=== PATIENT | male | born 1945 | race Caucasian/White ===

== ENCOUNTER 2017-06-18 15:31 | Outpatient (CLI) | payer MEDICARE | END 2017-06-18 15:32 | disposition home or self-care (01) | LOC: BICMRI 15:31 | PROVIDERS: ATTEND Neurological Surgery | DX: M54.2 Cervicalgia (principal); M47.892 Other spondylosis, cervical region; R60.0 Localized edema | CPT/HCPCS: 72156 ==

== ENCOUNTER 2017-12-28 09:54 | Inpatient (IN) | payer MEDICARE ==
[~2017-12-28 09:54] MED LIST: ISOVUE-370 76%-LOCM 1 ML ONE; Lidocaine 1% PF 5 ML VIAL ONE; Sodium Bicarbonate 2.5 MEQ/5 ML VIAL ONE
[2017-12-28 10:55] LABS: INR-International Normal Ratio 0.9; PTT 28.8 SEC (22.9-36.1)
[2017-12-28 11:02] LABS: Hemoglobin 15.6 g/dL (14.0-18.0); Mean Corpuscular HGB CONC 31.4 g/dL (32.0-36.0); Mean Corpuscular Hemoglobin 31.7 pg (27.0-31.0); Mean Platelet Volume 6.4 fL (7.4-10.4); Platelet Count 374 thou/uL (130-400); RBC Distribution Width 12.2 % (11.5-14.5); Red Blood Cell (RBC) Count 4.92 mill/uL (4.70-6.10); White Blood Cell (WBC) Count 17.1 thou/uL (4.8-10.8)
[2017-12-28 11:08] LABS: ALT (SGPT) 64 U/L (8-55); AST (SGOT) 26 U/L (5-34); Albumin 3.9 g/dL (3.4-4.8); Alkaline Phosphatase 69 U/L (40-150); Anion Gap 12 mmol/L (10-20); BUN (Urea Nitrogen) 15 mg/dL (8.4-25.7); Bilirubin, Total 1.3 mg/dL (0.2-1.2); Calc. Creatinine Clearance 0 mL/min (70-130); Calcium 9.6 mg/dL (7.8-10.44); Carbon Dioxide 31 mmol/L (23-31); Chloride 94 mmol/L (98-107); Estimated GFR-MDRD Greater than 90; Globulin 2.8 g/dL (2.4-3.5); Glucose 114 mg/dL (83-110); Potassium 3.6 mmol/L (3.5-5.1); Protein, Total 6.7 g/dL (5.8-8.1); Sodium 133 mmol/L (136-145)
[2017-12-28 11:31] LABS: Band 25 % (5-11); Lymphocytes 11 % (21-51); MDiff Complete? YES; Monocytes 4 % (0-10); Neutrophil 57 % (42-75); PLT Morphology Comment Appears Adequate; Reactive Lymphocytes 3 % (0-10); Vacuoles SLIGHT
--- NOTE | 2017-12-28 11:54 | RAD ---
ONE VIEW CHEST: History: Dyspnea. Recent diagnosis of lung cancer. FINDINGS: Atherosclerosis of the aorta. Normal cardiac silhouette. The pulmonary vessels and hilum are normal. Costophrenic angles are clear. Lungs are hyperinflated. Interstitial opacities of the lung bases are noted. There appears to be a nodule in the left upper lobe, measuring 1.3 cm. There is bilateral apical pleural thickening. No pneumothorax. IMPRESSION: 1. Hyperinflation. 2. Chronic change of the lung parenchyma. 3. Left upper lobe nodule. POS: [facility]
[2017-12-28] MEDS ORDERED: Piperacillin/Tazobactam 3.375 GM VIAL ONE (12:01)
--- NOTE | 2017-12-28 12:10 | PDOC.FPRHP ---
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 He and his report he has been havin increased dyspea in the last 2 weeks. He reports a productive cough with thick yellow sputum. Pt. reports that in the last 6 weeks, he as been on 3 different abx regiments. One was levoquin and he had a negative reaction to it. is unsure of the other two. Pt was also started a steroid step down on 12/16-12/31. He is currently on 1/2 pill, unknown dose. Pt. has no history of COPD or history of dyspnea. Pt. has been having dysphagia x 1 month. He is having trouble swallowing water. He reports it gets stuck up in his throat. Pt. had fall on 05/17 Pt. was diagnosed with Throat and tongue cancer in 2002. He received Radiation and surgery. Radiation therapy caused iatrogenic hypothyroidism and cataracts. Pt. had scope by Dr. Plunkett on 12/15 and he was clear of any cancer. Pt. had PET scan and was diagnosed with lung cancer 2 weeks ago. 12/25 Pt. had axilarly lymph node biopsy. Pending results. Dr. Chatman is his overnight houseperson. - Allergies/Adverse Reactions Allergies Allergy/AdvReac Type Severity Reaction Status Date / Time No Known Allergies Allergy Unverified 12/28/17 14:40 - Home Medications Medication Instructions Recorded Confirmed Type Amlodipine [Norvasc] 10 mg PO DAILY 12/28/17 12/28/17 History Levothyroxine Sodium [Synthroid] 137 mcg PO DAILY 12/28/17 12/28/17 History Losartan/Hydrochlorothiazide 1 tablet PO DAILY 12/28/17 12/28/17 History [Losartan-Hctz 100-12.5 mg Tab] - History PMHx: Hypothyroidism, HLD, metastatic lung cancer, throat/tongue cancer in remission, HTN PSHx: Throat/tongue cancer, FHx: none Social: Denies D/A/T - Review of Systems General: reports: weight/appetite/sleep changes (Decreased oral intake). denies : fever/chills Eyes: denies: eye pain, vision changes ENT: denies: nasal congestion, rhinorrhea Respiratory: reports: cough (yellow sputum), shortness of breath, exercise intolerance. denies: congestion Cardiovascular: reports: other (rib pain from coughing). denies: chest pain, palpitation, edema Gastrointestinal: denies: nausea, vomiting, diarrhea, constipation, abdominal pain Genitourinary: denies: incontinence, dysuria Skin: denies: rashes, lesions Musculoskeletal: denies: pain, tenderness Neurological: denies: numbness, syncope - Vital signs BP: 145/95 HR: 103 RR: 24 Tmax: 97.2 Pox: 93% on 4L Wt: 77.11 - Physical Exam Constitutional: awake, alert and oriented -Constitutional: Appears in mild distress 2/2 respiratory distress. HEENT: normocephalic and atraumatic, PERRLA, EOMI, conjunctiva clear Neck: supple, FROM Chest: no-tender to palpation Heart: RRR, normal S1/S2, no murmurs/rubs/gallops -Lungs: Pt. has diffuse coarse breath sounds. Pt. also has radiation from upper airway Abdomen: soft, non-tender, bowel sounds present Musculoskeletal: ROM grossly normal Neurological: CN II-XII intact -Skin: Cap refill ~4 seconds Psychiatric: normal mood and affect, good judgment and insight FMR H&P: Results - Labs Result Diagrams: 12/29/17 04:23 12/29/17 04:23 Lab results: WBC 17.1 thou/uL (4.8-10.8) H 12/28/17 10:32 Hgb 15.6 g/dL (14.0-18.0) 12/28/17 10:32 Hct 49.8 % (42.0-52.0) 12/28/17 10:32 MCV 101.0 fL (78.0-98.0) H 12/28/17 10:32 Plt Count 374 thou/uL (130-400) 12/28/17 10:32 Band Neuts % (Manual) 25 % (5-11) H 12/28/17 10:32 Sodium 133 mmol/L (136-145) L 12/28/17 10:32 Potassium 3.6 mmol/L (3.5-5.1) 12/28/17 10:32 Chloride 94 mmol/L (98-107) L 12/28/17 10:32 Carbon Dioxide 31 mmol/L (23-31) 12/28/17 10:32 BUN 15 mg/dL (8.4-25.7) 12/28/17 10:32 Creatinine 0.75 mg/dL (0.6-1.3) 12/28/17 10:32 Glucose 114 mg/dL (83-110) H 12/28/17 10:32 Lactic Acid 1.5 mmol/L (0.5-2.2) 12/28/17 10:32 Calcium 9.6 mg/dL (7.8-10.44) 12/28/17 10:32 Total Bilirubin 1.3 mg/dL (0.2-1.2) H 12/28/17 10:32 AST 26 U/L (5-34) 12/28/17 10:32 ALT 64 U/L (8-55) H 12/28/17 10:32 Alkaline Phosphatase 69 U/L (40-150) 12/28/17 10:32 Serum Total Protein 6.7 g/dL (5.8-8.1) 12/28/17 10:32 Albumin 3.9 g/dL (3.4-4.8) 12/28/17 10:32 - Radiology Interpretation Chest x-ray Status: image reviewed by me, report reviewed by me (Hyperinflation, chronic change of the lung parenchyma, left upper lobe nodule) FMR H&P: A/P - Problem List (1) Dyspnea Current Visit: Yes Status: Acute Code(s): R06.00 - DYSPNEA, UNSPECIFIED (2) Lung cancer Current Visit: Yes Status: Acute Code(s): C34.90 - MALIGNANT NEOPLASM OF UNSP PART OF UNSP BRONCHUS OR LUNG (3) HTN (hypertension) Current Visit: Yes Status: Acute Code(s): I10 - ESSENTIAL (PRIMARY) HYPERTENSION (4) HLD (hyperlipidemia) Current Visit: Yes Status: Acute Code(s): E78.5 - HYPERLIPIDEMIA, UNSPECIFIED (5) Hypothyroidism Current Visit: Yes Status: Acute Code(s): E03.9 - HYPOTHYROIDISM, UNSPECIFIED (6) History of throat cancer Current Visit: Yes Status: Acute Code(s): Z85.819 - PRSNL HX OF MALIG NEOPLM OF UNSP SITE LIP,ORAL CAV,& PHARYNX (7) Tongue cancer Current Visit: Yes Status: Acute (8) History of tobacco abuse Current Visit: Yes Status: Acute Code(s): Z87.891 - PERSONAL HISTORY OF NICOTINE DEPENDENCE - Plan This is a 72 yo male PMH of 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 COPD exacerbation -CXR shows no signs of PNA, procalcitonin 31.79. Pt. was started on vanc and zosyn (12/28) in the ED and will be continued. He is also receiving PRN duonebs and PRN albuterol nebs. Pt has been started on 10mg dexamethasone (12/28). D- dimer was negative. CBC was 17.1 although patient has been on PO steroids for dyspnea since 12/16. Lung cancer -Diagnoses with PET scan 2 weeks ago. Pt. had a lymph node biopsy on 12/25. Dr. Chatman is his overnight houseperson. Hypothyroidism -2/2 radiation. Will continue home meds once reconciled. HTN -Continue pt's home amlodipine and losartan/HCTZ HLD -Start pt. on statin Hx of throat/tongue cancer -Pt. has been on pureed diet since surgery in 2002. Pt. had recent, 12/15, scope performed by Dr. Neo Plunkett showing no signs of cancer. Despite this he as had increased dysphagia to water only. Speech has been consulted. Pt. is on clear liquid diet. Hx of fall -No current risk of fall. Was 2/2 poor judgment Hx of tobacco abuse -30 pack year history, quit 10 years ago Code: full Prophylaxis: Pepcid, lovenox Family: at bedside, plan discussed with her. Disposition: Admit to oncology, [place] in 3-4 days FMR H&P: Upper Level - Pertinent history HPI: 72 yo M with a PMHx HTN and head and neck cancer who presents with worsening shortness of breath, dysphagia and chest congestion for the last 3 weeks. He reports cough with increased sputum production and that he has been on multiple treatment regimens of abx and steroids OP without any improvement. He reports that his BP has also been increasingly difficult to control over the last few weeks as well. He has had poor PO intake and difficulty swallowing his pureed diet and now some difficulty with water. His PCP is in [place]. - Pertinent findings Exam: VS as above - mildly hypertensive, tachycardic and tachypenic Gen: alert and oriented x3 HEENT: EOMI, conjunctiva non-injected, oropharynx without posterior erythema or exudates, tongue resected CV: tachycardic, distant heart sounds hard to auscultate over breath sounds RESP: High-pitched diffuse coarse worse in upper lobes with good air entry BL Abd: soft, nontender, nondistended Ext: BLE without edema, pedal pulses 1+, radial pulses 1+ Neuro: No facial droop, equal movements in all extremities, speech slightly difficult to understand Skin: bruising under L axilla at site of LN biopsy CXR: Increased lung ulloa, L lung nodule, chronic changes Labs: WBC 17.1, Hgb 15.6, hct 49.8, Plt 374, MCV 101, Coags WNL, D dimber 0.29 , Na 133, K 3.6, CO2 94, Cr 075, Glu 114, AST 26, ALT 64, Alk phos 69, BNP 29.8 , Procal 31.79 A/P: 72 yo M with PMHx HTN and head and neck cancer with recent worsening SOB and dysphagia here with SIRS 2/2 suspected PNA 1. SIRS: s/p 1L NS in ED. Will continue fluids. Vanc and Zosyn. BCx not drawn until after abs started. Lactic acid negative. Procal elevated at 31.79. 2. SOB: No clear consolidation on CXR. CTA pending. Satting 93% on 4L NC. Reports SOB was 5/10 on admission and now 2.5 in difficulty. Will start steroids , continue abx and schedule duonebs. 3. Dysphagia: Acutely worsening over the last couple of weeks. HOUSEKEEPER HOME consult 4. HTN: Slightly elevated. Start home meds. Amlodipine and Losartan/hctz. Consider augmentation. 5. Recent LN biopsy with likely metastatic disease: Will await path. No oncologist as of yet. Will consult if indicated inpatient, otherwise will need close f/u outpatient. 6. Hypothyroid: Continue home Synthroid 7. H/o head and neck cancer 8. H/o tobacco abuse: Quit 10 years ago PPX: Lovenox CODE: FULL - Plan Date/Time: 12/28/17 1202 I, Denae Doss MD, PGY-3, have evaluated this patient and agree with findings/ plan as outlined by epidemiology intern resident. Pertinent changes/additions are listed here. Attending Addendum - Attending Addendum Date/Time: 12/28/17 1352 I personally evaluated the patient and discussed the management with Dr. Hernandez and Dr. Doss I agree with the History, Examination, Assessment and Plan documented above with any addition or exceptions noted below. 72 yo male with past history of head and neck cancer presents to ER for evaluation for SOB. Patient reports recent dx of primary lung cancer with possible mets to adrenals. Reports chronic worsening cough with increased sputum production over the past month. Has been treated with 3 rounds of antibiotics and steroid taper. Today not able to ambulate easily at home due to MARTINEZ which is far from baseline. s/p lymph node biopsy on Thursday. No fever or chills. No known sick contacts. No other symptoms. VS reviewed. Images reviewed. Labs reviewed. Ill appearing on exam. Tachycardic on exam. No murmurs. Course breath sounds throughout felt to be complicated by radiation of upper airway noise. SIRS concern for sepsis: Procal 31. Cultures obtained after antibiotics given in ER. Emperic antibiotics for now. Continue IVFs. Monitor closely. (HR, RR, WBCs, procal) Hypoxic respiratory distress: On supplemental O2. O2 sat maintained on NC. Patient reports feeling much better. CXR reviewed. CTA abd ddimer negative for PE. Also patient has 2 medical records in system with previous CTAs noted just recently. Not known during time of CTA order. Working on merging charts. Head/Neck cancer: s/p treatment/surgery 2002. Now with dysphagia. Speech eval for swallow. Metastatic lung cancer: Awaiting complete diagnosis and workup. Chatman to be consulted. COPD: Schedule breathing treatments and steroids. Adjust meds as needed. Bonita
[2017-12-28] MEDS ORDERED: Acetaminophen 325 MG TAB PO PRN (12:42)
[2017-12-28] MEDS ORDERED: Ondansetron ODT 4 MG TAB PO PRN (12:42)
[2017-12-28 13:02] LABS: D-Dimer Test 0.29 *mcg/mL (0.27-0.43)
[2017-12-28] MEDS ORDERED: Albuterol Sulfate 1.25 MG/3 ML NEB NEB PRN (14:02)
--- NOTE | 2017-12-28 15:44 | CT ---
CTA OF THORAX UTILIZING IV CONTRAST AND 3D REFORMATTED IMAGING: Date: 12/28/17 INDICATION: Shortness of breath with a history of cancer. Patient has a history of lung cancer diagnosed 2 weeks ago with 30 lb. weight loss, and increasing weakness and falls. TECHNIQUE: Multiple CTA images were obtained of the thorax utilizing PE protocol. 3D reformatted images were con structed from the raw data. Motion artifact slightly limits image detail. FINDINGS: There is air space consolidation within both lower lobes, with debris seen within the bronchi of both lower lobes suspicious for aspiration. There are patchy areas of ground-glass and reticulonodular op acity within the lateral segment of the right middle lobe suspicious for aspiration. There is a peripheral nodular opacity within the right upper lobe measuring 8.0 mm on image 51 of ser ies 3. There is a 2.5 cm pulmonary nodule within the apical posterior segment of the left upper lobe on image 33 of series 3. There is pleural parenchymal scarring and scattered emphysema involving both lungs. There is a small, 5.0 mm, pulmonary nodule of right upper lobe apical segment on image 22 of series 3. Smaller, sub 4.0 mm, pulmonary nodules within the anterior segment of the right upper lobe, image 44 of series 3. There is an enlarged lymphnode within the left AP window measuring 4.5 cm, image 45, series 2. There is a left suprahilar nodular prominence on image 49 of series 2 measuring 1.9 cm, which may reflect a suprahilar lymph node versus suprahilar mass. There are enlarged lymph nodes within the left axillary region, the largest measuring 2.4 cm on image 38 of series 2. There is ectasia of the ascending aorta up to 3.9 cm. There is aneurysmal dilatation of the aortic ar ch measuring 3.1 cm. The descending thoracic aorta also measures 3.2 cm. There are scattered coronary artery and thoracic aortic calcifications. Motion artifact slightly limits image detail. No definite central pulmonary embolus is evident. The s egmental pulmonary arteries are not well seen. There is a mass within the left adrenal gland measurin g 3.7 cm. No definite destructive osteolytic or osteoblastic lesion is identified. IMPRESSION: 1. No definite central pulmonary embolus demonstrated within limitations of exam. Lobar and segmenta l pulmonary branches are not well seen due to motion artifact. 2. Findings suspicious for aspiration pneumonitis of both lower lobes and right middle lobe. 3. Scattered pulmonary nodules within both lungs suspicious for metastatic disease. 4. Nodular opacity within the left suprahilar region may reflect an enlarged lymph node versus supra hilar mass. 5. Large lymph node within the AP window of the mediastinum suspicious for malignant lymphadenopathy . 6. Enlarged lymph nodes left axillary region suspicious for metastatic disease. 7. Left adrenal gland mass suspicious for metastatic disease. POS: [facility]
[2017-12-28] MEDS ORDERED: Sodium Chloride 0.9% 1,000 ML IV SCH (16:00)
[2017-12-28 16:51] LABS: Bilirubin Negative (Negative); Blood, Urine Negative (Negative); Clarity CLEAR (Clear); Glucose, Urine (Dipstick) Negative (Negative); Leukocyte Negative (Negative); Nitrite Negative (Negative); Protein, Urine (Dipstick) Trace mg/dL (Neg-Trace)
[2017-12-28] MEDS: Piperacillin/Tazobactam 3.375 GM in Sodium Chloride 0.9% 100 ML IVPB SCH (18:15)
[2017-12-28] MEDS: Mometasone/Formoterol 120 PUFF INHALER INH SCH (20:08)
[2017-12-28] MEDS: guaiFENesin ER 600 MG TAB PO SCH (20:08)
[2017-12-28] MEDS: Famotidine/PF 20 mg/2ml Vial SLOW IVP SCH (20:09)
[2017-12-28] MEDS ORDERED: Labetalol HCl 100 MG/20 ML VIAL SLOW IVP PRN (20:23)
[2017-12-28] MEDS: Labetalol HCl 100 MG/20 ML VIAL SLOW IVP PRN (21:05)
[2017-12-28] MEDS ORDERED: diphenhydrAMINE 50 MG/ML VIAL IVP SCH (23:00)
[2017-12-28] MEDS: Vancomycin HCl 1.25 GM in Sodium Chloride 0.9% 250 ML 300 ML IVPB SCH (23:04)
--- NOTE | 2017-12-29 00:02 | CON ---
A 72-year-old gentleman who is well known to me. He was seen in the office on 12/16/[address] of his chest shows very extensive multiple lung nodules, the largest one being pleural based left upper lung 2.5 cm. Additionally, he had adrenal mass in the left side 5 x 3 cm and aorta pulmonary mass with some minimal distal tracheal extrinsic compression. He lives in [facility] in 2002 in [place]. He was diagnosed to have lung cancer and underwent radical surgery with head and neck cancer surgery with reconstruction surgery, skin taken from the left forearm. He did well. He had a PET scan done, some 5 years ago, which was negative. At the time when I saw him, he appeared to be cachectic, malnourished. He has lost considerable weight. He is going to see Dr. Plunkett whom he has seen before in the past. I ordered another PET scan on him, which then showed rather extensive metastatic disease along with extensive adenopathy and a large left axillary lymph node. This was biopsied on Thursday. I spoke to the pathologist today, what appears to be poorly differentiated carcinoma, still doing some stains. Patient is a nonsmoker since 2002. Prior to that smoked 1.5 packs for 30 years with a previous history of TB or pneumonia. Presently can barely walk even across the morrow following which he is markedly tired. PAST MEDICAL HISTORY: Pertinent for hypothyroidism, hypertension. MEDICATIONS: Amlodipine 10 mg, levothyroxine, 137, losartan and aspirin. PAST SURGICAL HISTORY: Cancer in 2002 in [place] for the radiation. SOCIAL HISTORY: Alcohol minimal. Tobacco as noted. 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 REVIEW OF SYSTEMS: Otherwise, unremarkable. PHYSICAL EXAMINATION: GENERAL: On examination is cachectic. He has some difficulty swallowing. Temperature is 97, pulse 100, respiration 24, saturations are 93 and 5 liters, blood pressure 170/99. CHEST: Bilateral rhonchi and crackles. CARDIAC: Normal S1, S2. ABDOMEN: Soft, no masses. LABORATORY: White count 17,000, H&H 15 and 49, platelet count 375. His electrolytes are normal. Creatinine is 0.75, sodium 133. IMPRESSION: 1. Metastatic probably primary lung cancer. Recent PET scan showing extensive adenopathy with additional mets involving adrenal left-sided mets. 2. Marked weight loss. 3. Dysphagia. 4. Chronic obstructive pulmonary disease. At this stage, I doubt he has got any pneumonia issues. Though, I agree with empiric antibiotics. I would deescalate antibiotics as soon as possible. Continue nebulizer treatments, steroids. I spoke with Dr. Alexander. He will be seeing the patient. The patient wants to have a PEG placed. He is unable to get a nutrition as per his . We will make a decision in the next 24 hours. ANDREW
[2017-12-29] MEDS: Piperacillin/Tazobactam 3.375 GM in Sodium Chloride 0.9% 100 ML IVPB SCH ×5 (00:32→23:51)
[2017-12-29] MEDS: Dextrose 5%-Lactated Ringers 1,000 ML IV SCH ×4 (02:00→20:51)
[2017-12-29] MEDS: Labetalol HCl 100 MG/20 ML VIAL SLOW IVP PRN ×2 (05:14→17:15)
[2017-12-29 05:21] LABS: #Lymphocytes 0.5 thou/uL (1.20-3.40); #Monocytes 0.2 thou/uL (0.11-0.59); #Neutrophils 11.1 thou/uL (1.40-6.50); %Eosinophils 0.2 % (0.0-10.0); %Lymphocytes 3.9 % (21.0-51.0); %Monocytes 1.9 % (0.0-10.0); Hemoglobin 14.1 g/dL (14.0-18.0); Mean Corpuscular HGB CONC 30.5 g/dL (32.0-36.0); Mean Corpuscular Hemoglobin 31.3 pg (27.0-31.0); Mean Platelet Volume 6.4 fL (7.4-10.4); Platelet Count 318 thou/uL (130-400); Red Blood Cell (RBC) Count 4.49 mill/uL (4.70-6.10); White Blood Cell (WBC) Count 11.8 thou/uL (4.8-10.8)
--- NOTE | 2017-12-29 05:33 | PDOC.FM ---
- Subjective Subjective: Pt. states that he slept poorly overnight. He states that the breathing treatments help some. He reports wanting to go forward with exploring having a PEG tube placed. He report having it placed before. He denies CP or abdominal pain. Pt. tried swallowing water in front of me and immediately went to coughing. - Objective MAR Reviewed: Yes Vital Signs & Weight: Vital Signs (12 hours) Temp Pulse Resp BP BP Pulse Ox 12/29/17 05:22 159/93 H 12/29/17 05:15 97.8 F 102 H 20 196/105 H 98 12/29/17 05:14 102 H 196/105 H 12/29/17 01:01 94 18 99 12/28/17 23:25 98.2 F 92 20 166/92 H 98 12/28/17 22:45 93 18 99 12/28/17 22:00 98 20 148/79 H 96 12/28/17 21:05 102 H 189/106 H 12/28/17 20:08 102 H 18 100 12/28/17 20:06 102 H 18 100 12/28/17 20:00 98.0 F 100 20 189/106 H 100 Weight Weight 68.22 kg I&O: 12/27/17 12/28/17 12/29/17 06:59 06:59 06:59 Intake Total 540 Output Total 600 Balance -60 Result Diagrams: 12/29/17 04:23 12/29/17 04:23 Phys Exam - Physical Examination Mild distress due to respiratory status HEENT: moist MMs Neck: no JVD Difficult to hear lungs sounds due to upper airway radiation Cardiovascular: RRR Difficult to assess heart. Compaired auscultation with pulse palpitation Gastrointestinal: soft, non-tender, no distention, positive bowel sounds Musculoskeletal: no edema, pulses present Neurological: normal sensation, moves all 4 limbs Psychiatric: A&O x 3 Dx/Plan (1) Dyspnea Code(s): R06.00 - DYSPNEA, UNSPECIFIED Status: Acute (2) Lung cancer Code(s): C34.90 - MALIGNANT NEOPLASM OF UNSP PART OF UNSP BRONCHUS OR LUNG Status: Acute (3) HTN (hypertension) Code(s): I10 - ESSENTIAL (PRIMARY) HYPERTENSION Status: Acute (4) HLD (hyperlipidemia) Code(s): E78.5 - HYPERLIPIDEMIA, UNSPECIFIED Status: Acute (5) Hypothyroidism Code(s): E03.9 - HYPOTHYROIDISM, UNSPECIFIED Status: Acute (6) History of throat cancer Code(s): Z85.819 - PRSNL HX OF MALIG NEOPLM OF UNSP SITE LIP,ORAL CAV,& PHARYNX Status: Acute (7) Tongue cancer Status: Acute (8) History of tobacco abuse Code(s): Z87.891 - PERSONAL HISTORY OF NICOTINE DEPENDENCE Status: Acute - Plan Plan: This is a 72 yo male PMH of 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 COPD exacerbation -CXR shows no signs of PNA, procalcitonin 31.79. Pt. was started on vanc and zosyn (12/28) in the ED and will be continued. He is also receiving PRN duonebs and PRN albuterol nebs. Pt has been started on 10mg dexamethasone (12/28). D- dimer was negative. CBC was 17.1 although patient has been on PO steroids for dyspnea since 12/16. Lung cancer -Diagnoses with PET scan 2 weeks ago. Pt. had a lymph node biopsy on 12/25. Dr. Chatman is his vehicle damage appraiser. Hypothyroidism -2/2 radiation. Will continue home meds once reconciled. HTN -Continue pt's home amlodipine and losartan/HCTZ HLD -Start pt. on statin Hx of throat/tongue cancer -Pt. has been on pureed diet since surgery in 2002. Pt. had recent, 12/15, scope performed by Dr. Neo Plunkett showing no signs of cancer. Despite this he as had increased dysphagia to water only. Speech has been consulted. Pt. is on clear liquid diet. -[facility] and oncology have been consulted. Per Lur[facility], pt. is wanting a PEG. We will discuss options with patient today and GI. Hx of fall -No current risk of fall. Was 2/2 poor judgment Hx of tobacco abuse -30 pack year history, quit 10 years ago Code: full Prophylaxis: Pepcid, lovenox Family: at bedside, plan discussed with her. Disposition: Admit to oncology, DC in 3-4 days
[2017-12-29 05:41] LABS: Anion Gap 11 mmol/L (10-20); BUN (Urea Nitrogen) 11 mg/dL (8.4-25.7); Calc. Creatinine Clearance 91 mL/min (70-130); Carbon Dioxide 31 mmol/L (23-31); Chloride 97 mmol/L (98-107); Estimated GFR-MDRD Greater than 90; Glucose 137 mg/dL (83-110); Potassium 3.1 mmol/L (3.5-5.1); Sodium 136 mmol/L (136-145)
[2017-12-29] MEDS ORDERED: Levothyroxine Sodium 25 MCG TAB PO SCH (06:00)
[2017-12-29] MEDS ORDERED: Levothyroxine Sodium 112 MCG TAB PO SCH (06:00)
[2017-12-29] MEDS: Mometasone/Formoterol 120 PUFF INHALER INH SCH ×2 (06:02→19:40)
[2017-12-29] MEDS ORDERED: Non-Formulary Item 1 EACH (Levothyroxine Sodium [Synthroid] 137 MCG) PO SCH (09:00)
[2017-12-29] MEDS ORDERED: Amlodipine 10 MG TAB PO SCH (09:00)
[2017-12-29] MEDS ORDERED: Dexamethasone 10 MG in Sodium Chloride 0.9% 50 ML IVPB SCH (09:00)
[2017-12-29] MEDS ORDERED: Non-Formulary Item 1 EACH (Losartan/Hydrochlorothiazide [Losartan-Hctz 100-12.5 Mg Tab] 1 PO SCH (09:00)
[2017-12-29] MEDS ORDERED: Hydrochlorothiazide 25 MG TAB PO SCH (09:00)
[2017-12-29] MEDS ORDERED: Losartan 25 MG TAB PO SCH (09:00)
[2017-12-29] MEDS: Famotidine/PF 20 mg/2ml Vial SLOW IVP SCH ×2 (09:42→20:51)
[2017-12-29] MEDS: guaiFENesin ER 600 MG TAB PO SCH ×2 (09:45→20:51)
--- NOTE | 2017-12-29 10:16 | PRG ---
DATE OF SERVICE: 12/29/2017 SUBJECTIVE: This morning, appears to be in no distress. I spoke to his . Speech came to see him and has recommended a modified diet. She still thinks h e is not getting enough calories. She is interested in having a PEG placed. OBJECTIVE: VITAL SIGNS: Sats are 99 on 2 liters, respirations 20, temperature 97, pulse 98, blood pressure 169/ 88. CHEST: Decreased breath sounds, no wheezing. 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 CARDIAC: Normal S1 and S2. No gallops. ABDOMEN: Soft, no masses. LABORATORY DATA: White count 11,000. H and H is 14 and 43. Electrolytes are normal. IMPRESSION: Metastatic bronchogenic carcinoma. PLAN: 1. Await final path. 2. Await input from Oncology. Probably needs a PEG. Comfort care. We will follow.
--- NOTE | 2017-12-29 10:54 | CON ---
DATE OF CONSULTATION: 12/29/2017 HISTORY OF PRESENT ILLNESS: Patient is a 72-year-old male with a history of tongue cancer diagnosed in 2002 and treated with radiation and surgery. He had swallowing trouble for approximatel y a year after that and then was able to swallow and is eating on his own up until a few weeks ago, nicolas chavez started developing dysphagia for both solids and liquids and he lost approximately 40 pounds. He a lso was recently diagnosed with a metastatic lung cancer. He had a PEG tube approximately 1 year aft er diagnosis of his tongue cancer. PAST MEDICAL HISTORY: Includes hypothyroidism and hypertension. MEDICATIONS: Includes Norvasc 10 mg p.o. daily, losartan/hydrochlorothiazide 1 p.o. daily, Synthroid 137 mcg p.o. daily. ALLERGIES: No known allergies. SOCIAL HISTORY: Alcohol is minimal. Former smoker. PAST SURGICAL HISTORY: Surgical resection for tongue cancer. REVIEW OF SYSTEMS: Constitutional: Positive for weight loss. Negative for fever or chills. Eyes: No blurred vision, double vision. ENT: Positive for sore throat. Negative for earache. Pulmonary: Positive for shortness of breath, positive for cough, positive for wheezing. Cardiovascular: Negative for chest pain. Negative for palpitations. Gastrointestinal: See above. Genitourinary: No hematuria or dysuria. Musculoskeletal: Negative for joint pain or muscle weaknes s. Skin: No rashes. Neurologic: No numbness or seizure activity. PHYSICAL EXAMINATION: VITAL SIGNS: Temperature 97.4, pulse 90, respiratory rate 20, blood pressure 169/88. HEENT: Significant for radiation changes and surgical changes to the mouth. NECK: Stiff with limited range of motion, also radiation changes to neck. CHEST: Clear. CARDIOVASCULAR: Regular rate and rhythm. ABDOMEN: Soft, nontender with a previous PEG site in the left upper quadrant. RECTAL: Deferred. EXTREMITIES: Normal. NEUROLOGIC: Nonfocal. LABORATORY DATA AND IMAGING: Shows a white blood cell count of 11.8, hemoglobin 14.1, MCV of 103. P T is 12.0, INR is 0.9. Chemistries show potassium 3.1, glucose 137. CT of the chest and thorax show finding suspicious for aspiration pneumonitis, pulmonary nodules, suprahilar mass, malignant lymphad enopathy, metastasis to the left adrenal gland. ASSESSMENT: 1. Oropharyngeal dysphagia - multifactorial. 2. Weight loss. 3. Aspiration pneumonitis. 4. Metastatic lung cancer. 5. History of tongue cancer. RECOMMENDATIONS: EGD and PEG.
--- NOTE | 2017-12-29 12:44 | PRG ---
DATE OF SERVICE: 12/29/2017 This is an addendum to the note of Dr. Ean Hernandez. Mr. Miller is an 72-year-old man recently found to have lung cancer. He has also had poor nutriti on for at least the last several months and Dr. Asa Oliva has been consulted to place a feeding tube . The patient exhibits some mild respiratory distress and stridor, but is otherwise awake and alert. The patient has also been seen in consultation by Dr. Chatman who originally saw the patient with lung c ancer. He will be following the patient with us as well. He has spoken to Oncology who is also on b oard with this patient.
[2017-12-29] MEDS: Enoxaparin Sodium 40 MG/0.4 ML SYRINGE SC SCH (13:09)
[2017-12-29] MEDS ORDERED: Esmolol 100 MG/10 ML VIAL ONE (13:39)
[2017-12-29] MEDS ORDERED: Labetalol HCl 100 MG/20 ML VIAL ONE (13:39)
[2017-12-29] MEDS ORDERED: Lidocaine 4% Topical Sol 50 ML BOT ONE (14:33)
[2017-12-29] MEDS ORDERED: Ketamine 50 MG/ML VIAL ONE (14:35)
[2017-12-29] MEDS ORDERED: Midazolam HCl 2 mg/2 ml Vial ONE (14:37)
[2017-12-29] MEDS ORDERED: LIDOCAINE HCL 4% Topical Sol (4 ML SOLN.PK.G.) FS SCH (14:45)
--- NOTE | 2017-12-29 15:21 | PQF ---
DATE: 12-31-17 ATTN: DR. ELIZABETH KNOWLES Please exercise your independent, professional judgment in responding to the clarification form. Clinical indicators are provided on the bottom of this form for your review Please check appropriate box(s) to clarify if the following diagnosis has been ruled in or ruled out: SEPSIS [ ] Ruled in diagnosis [ ] Continue to treat [ ] Resolved [ x ] Ruled out diagnosis [ ] Other diagnosis [ ] Unable to determine In addition, please specify: Present on Admission (POA): [ x ] Yes [ ] No [ ] Unable to determine Pt. met SIRS criteria on admission with a concern for pneumonia as the source. This concern has been ruled out. For continuity of documentation, please document condition throughout progress notes and discharge summary. Thank You. CLINICAL INDICATORS - SIGNS / SYMPTOMS / LABS ER DX: SEPSIS, LUNG CANCER, PNEUMONIA H&P: SIRS CONCERN FOR SEPSIS WBC: 12-28-17: 17.1 10: 11.8 BANDS: 12-28-17: 25 PULSE: 12-28-17: 113, 112, 102, 102 10: 102, 102, 101, 104 ER: 106, 103 RR: 12-28-17: 24, 24, 24 10--18: 24 ER: 32, 24, 31, 26 RISK FACTORS: H&P: DX WITH LUNG CA 2 WEEKS WITH 30# WEIGHT LOSS, INCREASED WEAKNESS, FALLS, HX SMOKING, CHOCKING SENSATION, HLP, MALIGNANCY HX OF THROAT AND TONGUE [address] MONTES DE OCA 12-29-17: WEIGHT LOSS, ASPIRATION PNEUMONITIS, METASTATIC LUNG CA TREATMENTS: ER: ZOSYN IV, VANCOMYCIN, IVF (This form is maintained as a part of the permanent medical record) 2014 [employer]. All Rights Reserved ADITYA [email or web address] Office: [phone] [facility]
[2017-12-29] MEDS ORDERED: Promethazine HCl 25 MG/ML VIAL IM PRN (15:35)
[2017-12-29] MEDS ORDERED: Ondansetron HCl/PF 4 MG/2 ML Vial IVP PRN (15:35)
[2017-12-29] MEDS ORDERED: Promethazine HCl 25 MG/ML VIAL SLOW IVP PRN (15:35)
--- NOTE | 2017-12-29 15:41 | PQF ---
DATE: 12-29-17 ATTN: DR. ELIZABETH KNOWLES Please exercise your independent, professional judgment in responding to the clarification form. Clinical indicators are provided on the bottom of this form for your review Please check appropriate box(s): [ x ] Acute Respiratory Failure: [ x] with Hypoxia[ ] with Hypercapnia [ ] Acute Respiratory Failure due to: (etiology) [ ] Other diagnosis [ ] Unable to determine In addition, please specify: Present on Admission (POA): [ x ] Yes [ ] No [ ] Unable to determine For continuity of documentation, please document condition throughout progress notes and discharge summary. Thank You. CLINICAL INDICATORS - SIGNS / SYMPTOMS / LABS ER DX: SEPSIS, LUNG CANCER, PNEUMONIA ER: SOB, WORSENING SOB AND DIFFICULTY BREATHING SINCE 12-25-17. PT UNABLE TO SPEAK IN FULL SENTENCES BUT FAMILY REPORTS THAT PT HAS BEEN UNABLE TO CATCH HIS BREATH OR SWALLOW SINCE THIS MORNING. PT DIAGNOSED WITH LUNG CA 2 WKS AGO, FORMER SMOKER, USING ACCESSORY MUSCLES, TACHYPNEIC RR: ER: 32, 24, 31, 26 O2 SAT: ER: SAT 95 ON 4L O2 SAT 93 ON 4L O2 H&P: HYPOXIC RESPIRATORY DISTRESS, ACUTE DYSPNEA, PT RECEIVING PRN DUONEBS AND ALBUTEROL NEBS, SATTING 93% ON 4L, WILL START STEROIDS, CONTINUE ABX RISK FACTORS: ER: SOB, WORSENING SOB AND DIFFICULTY BREATHING SINCE 12-25-17. PT UNABLE TO SPEAK IN FULL SENTENCES BUT FAMILY REPORTS THAT PT HAS BEEN UNABLE TO CATCH HIS BREATH OR SWALLOW SINCE THIS MORNING. PT DIAGNOSED WITH LUNG CA 2 WKS AGO, FORMER SMOKER, USING ACCESSORY MUSCLES, TACHYPNEIC ER DX: SEPSIS, LUNG CANCER, PNEUMONIA TREATMENTS: O2 SAT: ER: O2 SAT 95 ON 4L O2 O2 SAT 93 ON 4L O2 H&P: PT RECEIVING PRN DUONEBS AND ALBUTEROL NEBS, SATTING 93% ON 4L, WILL START STEROIDS, CONTINUE ABX,. HYPOXIC RESPIRATORY DISTRESS ER: ZOSYN, VANCOMYCIN, IVF (This form is maintained as a part of the permanent medical record) 2014 [employer]. All Rights Reserved [email or web address] Office: [phone] [facility]
--- NOTE | 2017-12-29 15:59 | PQF ---
Date: 12-31-17 ATTN: DR. ELIZABETH KNOWLES Please exercise your independent, professional judgment in responding to the clarification form. Clinical indicators are provided on the bottom of this form for your review Please check appropriate box(s): [ x] Protein Calorie Malnutrition: [ ] Mild [ x ] Moderate [ ] Severe 2/2 worsening dysphagia [ ] Other Malnutrition (please specify) __ [ ] Other diagnosis [ ] Unable to determine In addition, please specify: Present on Admission (POA): [ x ] Yes [ ] No [ ] Unable to determine CLINICAL INDICATORS - SIGNS / SYMPTOMS / LABS BMI of 19.3 [employer] INTERN CONSULT 12-29-17: MD notes indicate 1 month of progressive dysphagia, unable to swallow water now. Recent diagnosis of lung cancer. 40# wt loss noted, in unspecified amount of time. Notes also indicate that he has been on puree textures since 2002. CONSULT NOTE DR. IVY 12-29-17: HE APPEARED TO BE CACHECTIC,MALNOURISHED. HE HAS LOST CONSIDERABLE WEIGHT. THE PATIENT WANTS TO HAVE PEG PLACED. HE IS UNABLE TO GET NUTRITION PER HIS . CONSULT DR. 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 2) Once PEG tube is placed, recommend initiating continuous TF of Jevity 1.5. Initiate TF at 30 ml/hr and increase by 15 ml every 4 hours to reach goal rate of 75 ml/hr. Provide TF over 21 hours/day, hold for Synthroid. 3) Recommend d/c IVF to prevent over hydration 4) Provide 30 ml flushes every 4 hours while IVF is running and provide 100 ml flushes every 4 hours once IVF is d/c'ed. 5) Monitor and replace electrolytes PRN. 6) Provide bowel regimen PRN. Moderate Malnutrition (in acute illness) Energy Intake: <75% of estimated energy requirement for > 7 days Weight Loss: 1-2%/1 week; 5%/ 1 month; 7.5%/3 months Other: mild body fat loss; mild muscle mass loss; mild fluid accumulation; Severe Malnutrition (in acute illness) Energy Intake: < 50% of estimated energy requirement for > 5 days Weight Loss: >1-2%/1 week; >5%/1 month; >7.5%/3 months Other: moderate body fat loss; moderate muscle mass loss; moderate- severe fluid accumulation; measurably reduced chinese herbalist strength Moderate Malnutrition (in chronic illness) Energy Intake: <75% of estimated energy requirement for >1 month Weight Loss: 5%/1 month; 7.5%/3 months; 10%/6 months; 20%/1 year Other: mild body fat loss; mild muscle mass loss; mild fluid accumulation Severe Malnutrition (in chronic illness) Energy Intake: <75% of estimated energy requirement for >1 month Weight Loss: >5%/1 month; >7.5%/3 months; >10%/6 months; >20%/1 year Other: severe body fat loss; severe muscle mass loss; severe fluid accumulation ; measurably reduced chinese herbalist strength Thank you, Natalia (This form is maintained as a part of the permanent medical record) 2015 [employer]. All Rights Reserved [email or web address] [email or web address] Office: [phone] [facility]ENTER[facility]
[2017-12-29] MEDS: Vancomycin HCl 1.25 GM in Sodium Chloride 0.9% 250 ML 300 ML IVPB SCH (16:20)
--- NOTE | 2017-12-29 20:11 | OP ---
PREOPERATIVE DIAGNOSIS: Oropharyngeal dysphagia. DESCRIPTION OF PROCEDURE: After informed consent was obtained, the patient was placed in the supine position. Anesthesia was administered per the Anesthesia Department. Forward-viewing endoscope was inserted into the esophagus under direct visualization with ease and passed to the second portion of the duodenum with ease. Second portion of duodenum and duodenal bulb were normal. The pylorus, antr um, body, fundus, and cardia were normal. Previous PEG site was noted. The area was prepped and galen ped in the usual manner. Anesthesia was applied with 1% lidocaine without epinephrine. A needle was inserted through the abdominal wall on the first pass. A wire was passed, snared, and brought out o f the mouth. PEG bumper was attached and brought through the abdominal wall after a small incision w as made. The scope was not reinserted to check for PEG position secondary to the patient's difficult airway. ASSESSMENT: Successful percutaneous endoscopic gastrostomy. RECOMMENDATIONS: Begin tube feedings in 8 hours.
[2017-12-29] MEDS ORDERED: Ondansetron ODT 4 MG TAB SL PRN (22:08)
[2017-12-29] MEDS: Potassium Chloride 20 MEQ in Premix Bag 1 BAG IVPB SCH (22:24)
[2017-12-29] MEDS ORDERED: diphenhydrAMINE 50 MG/ML VIAL IVP SCH (23:00)
--- NOTE | 2017-12-30 01:11 | CON ---
DATE OF CONSULTATION: 12/29/2017 REASON FOR CONSULTATION: Metastatic lung cancer. 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 The patient has been having worsening of dyspnea over the last couple of weeks and productive cough productive of thick yellow sputum. CT scan showed pneumonitis versus possible pneumonia. The patient states in April, he had a fall and since then has had progressive fatigue, weakness and a 45- pound weight loss. The patient was seen by Dr. Chatman in 11/2017. The patient was found to have peripheral adenopathy and had a left axillary lymph node biopsy that showed poorly differentiated carcinoma suggestive of lung primary; however, further stains are pending to clarify pathologic subtype. The patient had a PET scan that showed diffuse metastases to adrenal gland, bone and lymph nodes in the chest, axilla and supraclavicular. The patient does complain of mild headaches, which he attributes to stress related to new diagnosis of cancer. He otherwise denies any difficulty with walking except feeling weak over the past few months. The patient is a former smoker of a pack a day for at least 30 years and quit in 2002 when he was diagnosed with oral cavity cancer. Today, the patient states his breathing has not improved since admission to the hospital yesterday and has been unable to sleep due to his dyspnea and anxiety. The patient's is at the bedside providing most of the history. REVIEW OF SYSTEMS: Ten-point review of systems negative except as per HPI. 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 PAST SURGICAL HISTORY: Oral cavity, throat and tongue resection. FAMILY HISTORY: None. SOCIAL HISTORY: Former smoker, 1 pack per day for 30 plus years, stopped in 2002. Occasional alcohol use, none recently. No illicit drugs. ALLERGIES: No known drug allergies. CURRENT MEDICATIONS: Reviewed. PHYSICAL EXAMINATION: VITAL SIGNS: Temperature 97.8, pulse 97, blood pressure 166/97 to 189/11, respirations 20, satting 95% on room air. LABORATORY DATA: White blood cells 17.1 on admission, down to 11.8 today, hemoglobin 14.1, platelets 318,000. Sodium 136, potassium 3.1, BUN 11, creatinine 0.70, albumin 3.9, total bilirubin 1.3, AST 26, ALT 64, alkaline phosphatase 69. Lactic acid 1.5. IMAGING DATA: CT angio of the chest with and without contrast dated 12/28/2017 shows no definite central pulmonary embolus, findings suspicious for aspiration pneumonitis in both lower lobes and right middle lobe, scattered pulmonary nodules within both lungs suspicious for metastatic disease. Nodular opacity within the left suprahilar region may reflect an enlarged lymph node versus suprahilar mass. Large lymph node within the AP window of the mediastinum suspicious for malignant lymphadenopathy. Enlarged lymph nodes, left axillary region suspicious for metastatic disease, left adrenal gland mass suspicious for metastatic disease. PET scan dated 12/18/2017 shows widespread metastatic disease. Left upper lobe lung neoplasm is favored primary. Heterogenous mass of the posterior aspect of the left upper lobe with maximum SUV of 5, uptake at left adrenal gland mass maximum SUV of 10.2. Focal areas of abnormal uptake in the bone showed maximum SUV of 5 at the left acetabulum and 4.8 at the posterior aspect of the L5 vertebral body. Left supraclavicular lymph node with maximum SUV of 4.9, left prepectoral lymph node 9.5, left axillary lymph node with maximum SUV 13.1 and AP window lymph node with maximum SUV 15.6. Uptake associated with posterior pharynx at the level of the epiglottis with maximum SUV of 4.8. Diffuse uptake through the thyroid gland including each lobe and isthmus, there is a maximum SUV of 8.3. It is thought this is less likely related to metastatic disease and other thyroid abnormalities such as acute or chronic thyroiditis. Pathology, poorly differentiated carcinoma. ASSESSMENT AND PLAN: A 72-year-old male with history of oral cavity cancer status post resection and radiation in 2002, now presenting with new diagnosis of poorly differentiated carcinoma of the left upper lung with mets to adrenal gland, bone and multiple lymph node stations in the chest, neck and under the arm. The patient has lost 45 pounds in the last 7-8 months and has progressively worsening fatigue and weakness, shortness of breath and cough. A left axillary LN was biopsied. Pathology currently shows a poorly differentiated carcinoma, however, the subtype is unclear and additional immunostains are pending to determine if this is a non-small cell versus a small cell lung cancer. The patient does require MRI brain for complete staging of his lung cancer. Depending on the subtype, the patient could be offered chemotherapy, immunotherapy or targeted agents. I have discussed these possible treatment options with the patient and his and we will follow up the MRI brain and final pathology results to determine the optimal treatment plan for the patient. The patient also just received a PEG tube for nutrition as he has had severe dysphagia and unable to swallow and is not receiving any nutrition and becoming weaker. The patient will require improvement in his nutritional status and his strength prior to receiving any treatment. We will follow along with this patient with you and return to speak to the family after pathology results return. Thank you for this consult. ANDREW
[2017-12-30] MEDS: Potassium Chloride 20 MEQ in Premix Bag 1 BAG IVPB SCH ×2 (02:00→06:02)
[2017-12-30] MEDS ORDERED: Vancomycin HCl 1.25 GM in Sodium Chloride 0.9% 250 ML 300 ML IVPB SCH ×2 (04:00→12:00)
[2017-12-30 04:28] LABS: #Lymphocytes 0.5 thou/uL (1.20-3.40); #Monocytes 0.4 thou/uL (0.11-0.59); %Basophils 0.1 % (0.0-1.0); %Eosinophils 0.1 % (0.0-10.0); %Lymphocytes 3.3 % (21.0-51.0); %Monocytes 2.7 % (0.0-10.0); %Neutrophils 93.7 % (42.0-75.0); Hemoglobin 13.5 g/dL (14.0-18.0); Mean Corpuscular HGB CONC 31.4 g/dL (32.0-36.0); Mean Corpuscular Hemoglobin 32.1 pg (27.0-31.0); Mean Platelet Volume 6.4 fL (7.4-10.4); Platelet Count 364 thou/uL (130-400); White Blood Cell (WBC) Count 13.9 thou/uL (4.8-10.8)
[2017-12-30 04:32] LABS: Vancomycin, Trough 9.5 ug/mL
[2017-12-30 04:35] LABS: Anion Gap 10 mmol/L (10-20); BUN (Urea Nitrogen) 14 mg/dL (8.4-25.7); Calc. Creatinine Clearance 85 mL/min (70-130); Calcium 9.5 mg/dL (7.8-10.44); Carbon Dioxide 33 mmol/L (23-31); Chloride 97 mmol/L (98-107); Estimated GFR-MDRD Greater than 90; Glucose 206 mg/dL (83-110); Magnesium 1.9 mg/dL (1.6-2.6); Potassium 3.1 mmol/L (3.5-5.1); Sodium 137 mmol/L (136-145)
[2017-12-30 04:38] LABS: Phosphorus 1.1 mg/dL (2.3-4.7)
[2017-12-30] MEDS: Piperacillin/Tazobactam 3.375 GM in Sodium Chloride 0.9% 100 ML IVPB SCH ×2 (05:09→11:49)
[2017-12-30] MEDS: Levothyroxine Sodium 25 MCG TAB PER TUBE SCH (05:13)
[2017-12-30] MEDS: Levothyroxine Sodium 112 MCG TAB PER TUBE SCH (05:13)
--- NOTE | 2017-12-30 05:23 | PDOC.FM ---
- Objective MAR Reviewed: Yes Vital Signs & Weight: Vital Signs (12 hours) Temp Pulse Resp BP Pulse Ox 12/30/17 04:00 97.7 F 98 20 170/90 H 96 12/30/17 02:43 98 20 100 12/29/17 23:51 98.2 F 96 16 129/76 93 L 12/29/17 22:55 100 20 90 L 12/29/17 21:29 102 H 20 166/83 H 95 12/29/17 20:00 97.8 F 105 H 18 140/90 95 12/29/17 19:38 99 20 94 L 12/29/17 17:45 97.8 F 94 20 176/104 H 95 Weight Admit Weight 68.22 kg Weight 68.22 kg I&O: 12/28/17 12/29/17 12/30/17 06:59 06:59 06:59 Intake Total 540 1440 Output Total 600 600 Balance -60 840 Result Diagrams: 12/30/17 03:56 12/30/17 03:56 Dx/Plan (1) Dyspnea Code(s): R06.00 - DYSPNEA, UNSPECIFIED Status: Acute (2) Lung cancer Code(s): C34.90 - MALIGNANT NEOPLASM OF UNSP PART OF UNSP BRONCHUS OR LUNG Status: Acute (3) HTN (hypertension) Code(s): I10 - ESSENTIAL (PRIMARY) HYPERTENSION Status: Acute (4) HLD (hyperlipidemia) Code(s): E78.5 - HYPERLIPIDEMIA, UNSPECIFIED Status: Acute (5) Hypothyroidism Code(s): E03.9 - HYPOTHYROIDISM, UNSPECIFIED Status: Acute (6) History of throat cancer Code(s): Z85.819 - PRSNL HX OF MALIG NEOPLM OF UNSP SITE LIP,ORAL CAV,& PHARYNX Status: Acute (7) Tongue cancer Status: Acute (8) History of tobacco abuse Code(s): Z87.891 - PERSONAL HISTORY OF NICOTINE DEPENDENCE Status: Acute - Plan Plan: This is a 72 yo male PMH of 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 COPD exacerbation vs. mass effect in throat, leading to acute respiratory failure -Pt. met SIRS criteria on admission due to heart rate, breathing, and WBC. CXR shows no signs of PNA, procalcitonin 31.79. Pt. was started on vanc and zosyn ( 12/28) in the ED and will be continued. He is also receiving PRN duonebs and PRN albuterol nebs. Pt has been started on 10mg dexamethasone (12/28). D-dimer was negative. CBC was 17.1 although patient has been on PO steroids for dyspnea since 12/16. Lung cancer -Diagnoses with PET scan 2 weeks ago. Pt. had a lymph node biopsy on 12/25. 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 Dr. Fay Hypothyroidism -2/2 radiation. Will continue home meds once reconciled. HTN -Continue pt's home amlodipine and losartan/HCTZ HLD -Start pt. on statin Hx of throat/tongue cancer -Pt. has been on pureed diet since surgery in 2002. Pt. had recent, 12/15, scope performed by Dr. Neo Plunkett showing no signs of cancer. Despite this he as had increased dysphagia to water only. Speech has been consulted. Pt. is on clear liquid diet. -Lurdes and oncology have been consulted. Pt. received PEG tube yesterday. Consult dietetics. Protein calorie malnutrition -Likely 2/2 to progressive dysphagia and previous oral surgery. Pt. had PEG tube placed yesterday to allow for nutrition and oral medications. Hypokalemia -We are currently replacing his potassium IV. We will likely start PO potassium through peg tube if there is no change today Hypophosphatemia -Likely 2/2 poor nutrition. We will be replacing with potassium today. Hx of fall -No current risk of fall. Was 2/2 poor judgment Hx of tobacco abuse -30 pack year history, quit 10 years ago Code: full Prophylaxis: Pepcid, lovenox Family: at bedside, plan discussed with her. Disposition: Admit to oncology, DC in 3-4 days
[2017-12-30] MEDS: Mometasone/Formoterol 120 PUFF INHALER INH SCH ×2 (07:46→19:02)
[2017-12-30] MEDS ORDERED: Potassium Phosphate 30 MMOL in Sodium Chloride 0.9% 500 ML IVPB SCH (08:00)
--- NOTE | 2017-12-30 09:43 | MRI ---
MRI BRAIN WITH AND WITHOUT CONTRAST: History: Metastatic lung cancer. Evaluate for brain metastases. Technique: Brain MRI is performed with and without intravenous gadolinium administration. Multisequen tial, multiplanar imaging performed. FINDINGS: The examination is not complete due to patient's inability to lay flat and due to difficulty breathin g. No hemorrhage on the axial gradient echo sequence. No parenchymal mass, mass effect of midline shift. Brain volume, age appropriate. Cortical zepeda white matter differentiation preserved. Ventricles and sulci are patent and symmetric. Central arterial flow voids are maintained. Absent restricted diffusion. T2 and FLAIR white matter hyperintensity due to chronic small vessel ischemic change. Mild mucosal thickening of the paranasal sinuses. Bilateral mastoid sinus mucosal thickening. There i s a mucous retention cyst in the right maxillary sinus. Post contrast images are somewhat limited due to motion. No pathologic enhancement of the brain paren chyma. IMPRESSION: Limited evaluation due to motion and patient's inability to complete the examination. Based on the im ages provided, there is no evidence of brain parenchymal metastases. T2 and FLAIR white matter hyperi ntensities are most compatible with chronic small vessel ischemic changes. POS: NORMA
[2017-12-30] MEDS: Famotidine/PF 20 mg/2ml Vial SLOW IVP SCH ×2 (09:45→20:44)
[2017-12-30] MEDS: Amlodipine 10 MG TAB PER TUBE SCH (09:46)
[2017-12-30] MEDS: Hydrochlorothiazide 25 MG TAB PER TUBE SCH (09:46)
[2017-12-30] MEDS: Losartan 25 MG TAB PER TUBE SCH (09:47)
[2017-12-30] MEDS: Enoxaparin Sodium 40 MG/0.4 ML SYRINGE SC SCH (09:55)
--- NOTE | 2017-12-30 11:22 | PRG ---
DATE OF SERVICE: 12/30/2017 This morning he is awake, alert, responsive, still has stridor from his vocal cord paralysis. PHYSICAL EXAMINATION: VITAL SIGNS: Blood pressure 174/96, sats are 96% on 2 liters, temperature 97, respirations 18. CHEST: Chest reveals decreased breath sounds without any wheezing. CARDIAC: Normal S1, S2. ABDOMEN: Soft, no masses. LABORATORY: White count 13,000, H&H 13 and 42, platelet count normal. Electrolytes normal. I spoke to the pathologist today. 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 Oncologic was notified about this. IMPRESSION: 1. Extensive small cell carcinoma. 2. Vocal cord paralysis. 3. Marked weight loss. PLAN: Chemotherapy is going to be initiated. He has a PEG for nutrition. Home when done with chemotherapy.
[2017-12-30] MEDS: Potassium Chloride 20 MEQ TAB PO SCH ×2 (11:49→16:11)
[2017-12-30] MEDS: guaiFENesin ER 600 MG TAB PO SCH ×2 (11:49→20:44)
--- NOTE | 2017-12-30 11:50 | PRG ---
DATE OF SERVICE: 12/30/2017 This is an addendum to the note of Dr. Ean Hernandez. Mr. Miller is having obvious stridor as before. He appears to be quite uncomfortable. He was jus t visited by the oncologist and they are to start chemotherapy later this afternoon or tomorrow. We will continue to follow up with his multi-team specialists.
--- NOTE | 2017-12-30 11:59 | PRG ---
DATE OF SERVICE: 12/30/2017 SUBJECTIVE: The patient is feeling much better. He has had multiple bowel movements. He is tolerat ing tube feedings. No problems with the PEG per nursing personnel. OBJECTIVE: VITAL SIGNS: Temperature 97.6, pulse 107, respiratory rate 20, blood pressure 174/96. HEENT: Unchanged. CHEST: Show expiratory wheeze. CARDIOVASCULAR: Regular rate and rhythm. ABDOMEN: Soft, nontender, without organomegaly or masses. The PEG site looks good. The bumper is a djusted, tube feedings are going. EXTREMITIES: Unchanged. LABORATORY DATA: Shows a white blood cell count 13.9, hemoglobin 13.4, hematocrit of 42.9. Chemistr y showed potassium 3.1, CO2 33, glucose 206. ASSESSMENT: 1. Oropharyngeal dysphagia. 2. Weight loss. 3. Aspiration pneumonitis. 4. Metastatic lung cancer. RECOMMENDATIONS: 1. Continuing tube feedings. 2. Reconsult if any PEG problems occur.
[2017-12-30] MEDS ORDERED: Melatonin 3 MG TAB PER TUBE PRN (15:00)
[2017-12-31 05:03] LABS: #Lymphocytes 0.4 thou/uL (1.20-3.40); #Monocytes 0.5 thou/uL (0.11-0.59); #Neutrophils 14.9 thou/uL (1.40-6.50); %Eosinophils 0.2 % (0.0-10.0); %Lymphocytes 2.3 % (21.0-51.0); %Monocytes 3.1 % (0.0-10.0); %Neutrophils 94.4 % (42.0-75.0); Hemoglobin 13.5 g/dL (14.0-18.0); Mean Corpuscular HGB CONC 32.5 g/dL (32.0-36.0); Mean Platelet Volume 6.3 fL (7.4-10.4); Platelet Count 382 thou/uL (130-400); RBC Distribution Width 11.9 % (11.5-14.5); Red Blood Cell (RBC) Count 4.09 mill/uL (4.70-6.10); White Blood Cell (WBC) Count 15.7 thou/uL (4.8-10.8)
[2017-12-31 05:11] LABS: Anion Gap 11 mmol/L (10-20); BUN (Urea Nitrogen) 16 mg/dL (8.4-25.7); Calc. Creatinine Clearance 91 mL/min (70-130); Calcium 9.5 mg/dL (7.8-10.44); Carbon Dioxide 36 mmol/L (23-31); Chloride 95 mmol/L (98-107); Estimated GFR-MDRD Greater than 90; Glucose 169 mg/dL (83-110); Sodium 139 mmol/L (136-145)
--- NOTE | 2017-12-31 05:56 | PDOC.FM ---
- Subjective Subjective: Pt. reports he had a good night. He slept the most he has and his breathing is improved. He made a few jokes as well. also reports it was a better night. Pt denies cp, nausea, abdominal pain aside from where they placed the PEG tube. - Objective MAR Reviewed: Yes Vital Signs & Weight: Vital Signs (12 hours) Temp Pulse Resp BP Pulse Ox 12/31/17 04:00 97.8 F 105 H 20 169/99 H 95 12/31/17 02:42 103 H 18 94 L 12/31/17 00:00 98.0 F 102 H 18 153/86 H 98 12/30/17 22:47 107 H 20 96 12/30/17 20:00 99 12/30/17 19:55 98.1 F 102 H 18 164/93 H 99 12/30/17 19:00 106 H 18 95 Weight Admit Weight 68.22 kg Weight 68.492 kg I&O: 12/29/17 12/30/17 12/31/17 06:59 06:59 06:59 Intake Total 540 3055 1678 Output Total 885 451 6312 Balance -60 6015 -541 Result Diagrams: 12/31/17 04:48 12/31/17 04:48 Phys Exam - Physical Examination Constitutional: NAD HEENT: moist MMs Neck: no JVD Continued stridorous breathing, difficult to assess Continued stridorous breathing, difficult to assess Gastrointestinal: soft, no distention, positive bowel sounds non tender over areas not effected by PEG tube Musculoskeletal: no edema, pulses present Neurological: moves all 4 limbs Psychiatric: normal affect, A&O x 3 Deviation from normal: Improved spirits Skin: normal turgor Dx/Plan (1) Dyspnea Code(s): R06.00 - DYSPNEA, UNSPECIFIED Status: Acute (2) Lung cancer Code(s): C34.90 - MALIGNANT NEOPLASM OF UNSP PART OF UNSP BRONCHUS OR LUNG Status: Acute (3) HTN (hypertension) Code(s): I10 - ESSENTIAL (PRIMARY) HYPERTENSION Status: Acute (4) HLD (hyperlipidemia) Code(s): E78.5 - HYPERLIPIDEMIA, UNSPECIFIED Status: Acute (5) Hypothyroidism Code(s): E03.9 - HYPOTHYROIDISM, UNSPECIFIED Status: Acute (6) History of throat cancer Code(s): Z85.819 - PRSNL HX OF MALIG NEOPLM OF UNSP SITE LIP,ORAL CAV,& PHARYNX Status: Acute (7) Tongue cancer Status: Acute (8) History of tobacco abuse Code(s): Z87.891 - PERSONAL HISTORY OF NICOTINE DEPENDENCE Status: Acute - Plan Plan: This is a 72 yo male PMH of 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 COPD exacerbation vs. mass effect in throat, leading to acute respiratory failure -Pt. met SIRS criteria on admission due to heart rate, breathing, and WBC. CXR shows no signs of PNA, procalcitonin 31.79. Pt. was started on vanc and zosyn ( 12/28) in the ED and will be continued. He is also receiving PRN duonebs and PRN albuterol nebs. Pt. has been on steroids since admission (12/28). D-dimer was negative. CBC was 15.7 today although patient has been on PO steroids for dyspnea since 12/16. Dr. Chatman is not as convinced that this is infectious in nature and we have stopped abx at this time. Lung cancer -Diagnoses with PET scan 2 weeks ago. Pt. had a lymph node biopsy on 12/25. Dr. Chatman is his mine supervisor. Dr. Fay Hypothyroidism -2/2 radiation. Will continue home meds once reconciled. HTN -Continue pt's home amlodipine and losartan/HCTZ HLD -Start pt. on statin Hx of throat/tongue cancer -Pt. has been on pureed diet since surgery in 2002. Pt. had recent, 12/15, scope performed by Dr. Neo Plunkett showing no signs of cancer. Despite this he as had increased dysphagia to water only. Speech has been consulted. Pt. is on clear liquid diet. -Chatman and oncology have been consulted. Pt. received PEG tube yesterday. Consult dietetics. Protein calorie malnutrition -Likely 2/2 to progressive dysphagia and previous oral surgery. Pt. had PEG tube placed yesterday to allow for nutrition and oral medications. Hypokalemia -We are replacing PO potassium. His levels are 3.0 in this pt. Hypophosphatemia -Likely 2/2 poor nutrition. We are replacing phosphorous Hx of fall -No current risk of fall. Was 2/2 poor judgment Hx of tobacco abuse -30 pack year history, quit 10 years ago Code: full Prophylaxis: Pepcid, lovenox Family: at bedside, plan discussed with her. Disposition: Admit to oncology, DC in 3-4 days
[2017-12-31] MEDS: Levothyroxine Sodium 112 MCG TAB PER TUBE SCH (06:05)
[2017-12-31] MEDS: Levothyroxine Sodium 25 MCG TAB PER TUBE SCH (06:05)
[2017-12-31 06:14] LABS: Phosphorus 1.8 mg/dL (2.3-4.7)
[2017-12-31] MEDS: Mometasone/Formoterol 120 PUFF INHALER INH SCH ×2 (06:44→18:11)
[2017-12-31] MEDS ORDERED: Dexamethasone Sod Phosphate 20 MG in Sodium Chloride 0.9% 50 ML IVPB SCH (06:45)
[2017-12-31] MEDS ORDERED: Potassium Chloride 20 MEQ TAB PO SCH (08:00)
[2017-12-31] MEDS: Potassium Chloride 20 MEQ TAB PER TUBE SCH ×3 (09:05→17:50)
[2017-12-31] MEDS: Hydrochlorothiazide 25 MG TAB PER TUBE SCH (09:05)
[2017-12-31] MEDS: Enoxaparin Sodium 40 MG/0.4 ML SYRINGE SC SCH (09:05)
[2017-12-31] MEDS: guaiFENesin ER 600 MG TAB PO SCH ×2 (09:05→20:49)
[2017-12-31] MEDS: Losartan 25 MG TAB PER TUBE SCH (09:06)
[2017-12-31] MEDS: Amlodipine 10 MG TAB PER TUBE SCH (09:06)
[2017-12-31] MEDS: Famotidine/PF 20 mg/2ml Vial SLOW IVP SCH ×2 (09:06→20:49)
[2017-12-31] MEDS: Dextrose 5%-Lactated Ringers 1,000 ML IV SCH (10:19)
[2017-12-31] MEDS ORDERED: Sodium Chloride 0.65% Nasal 44 ML BOT EA NARE PRN (10:28)
--- NOTE | 2017-12-31 10:44 | PRG ---
DATE OF SERVICE: 12/31/2017 This is a 72-year-old gentleman who is doing much better. He is less short of breath. He will be st arted on chemotherapy for small cell cancer, Etoposide. Otherwise, he is doing quite well. He is l ess short of breath, less coughing, less wheezing. PHYSICAL EXAMINATION: VITAL SIGNS: Blood pressure is 159/91, sats are 92% on room air, respiration rate 18, temperature 98 . CHEST: Chest revealed decreased breath sounds, no wheezing. CARDIAC: Normal S1-S2. No gallops. ABDOMEN: Soft, no masses. IMPRESSION: 1. Small cell bronchogenic carcinoma. 2. Extensive adenopathy. PLAN: Continue chemotherapy. The patient may want to get a nebulizer before discharge. We will arrange for that. Home early next week post-chemotherapy.
[2017-12-31] MEDS ORDERED: Dexamethasone 10 MG in Sodium Chloride 0.9% 50 ML IVPB SCH (11:00)
[2017-12-31] MEDS ORDERED: PALONOSETRON HCL 0.05 MG/ML 5 ML VIAL IVP SCH (11:00)
[2017-12-31] MEDS: Acetaminophen 650 MG/20.3 ML UDCUP PER TUBE PRN ×2 (11:01→17:49)
[2017-12-31] MEDS ORDERED: SODIUM CHLORIDE 0.9% IVPB SCH (12:00)
[2017-12-31] MEDS ORDERED: CARBOPLATIN IVPB SCH (12:00)
[2017-12-31] MEDS ORDERED: SODIUM CHLORIDE 0.9% IV SCH (12:00)
[2017-12-31] MEDS ORDERED: ETOPOSIDE IV SCH (12:00)
[2017-12-31] MEDS: Fluticasone Propionate Nasal Spray 16 gm Bottle NASAL SCH (20:50)
[2018-01-01] MEDS: Acetaminophen 650 MG/20.3 ML UDCUP PER TUBE PRN ×4 (02:45→20:52)
[2018-01-01 04:44] LABS: #Eosinphils 0.1 thou/uL (0.0-0.7); #Lymphocytes 0.2 thou/uL (1.20-3.40); #Monocytes 1.3 thou/uL (0.11-0.59); #Neutrophils 14.3 thou/uL (1.40-6.50); %Eosinophils 0.3 % (0.0-10.0); %Lymphocytes 1.5 % (21.0-51.0); %Neutrophils 90.1 % (42.0-75.0); Mean Corpuscular HGB CONC 31.6 g/dL (32.0-36.0); Mean Corpuscular Hemoglobin 32.3 pg (27.0-31.0); Platelet Count 335 thou/uL (130-400); RBC Distribution Width 12.1 % (11.5-14.5); Red Blood Cell (RBC) Count 4.04 mill/uL (4.70-6.10); White Blood Cell (WBC) Count 15.9 thou/uL (4.8-10.8)
[2018-01-01 04:57] LABS: BUN (Urea Nitrogen) 18 mg/dL (8.4-25.7); Calc. Creatinine Clearance 100 mL/min (70-130); Calcium 9.1 mg/dL (7.8-10.44); Estimated GFR-MDRD Greater than 90; Glucose 157 mg/dL (83-110)
[2018-01-01 05:06] LABS: Anion Gap 12 mmol/L (10-20); Carbon Dioxide 34 mmol/L (23-31); Chloride 95 mmol/L (98-107); Potassium 3.3 mmol/L (3.5-5.1); Sodium 138 mmol/L (136-145)
--- NOTE | 2018-01-01 05:39 | PDOC.FM ---
- Subjective Subjective: Pt. reports he slept ok today. He reports a minor headache but otherwise is doing ok. Denies sob, cp, or abdominal pain. - Objective MAR Reviewed: Yes Vital Signs & Weight: Vital Signs (12 hours) Temp Pulse Resp BP Pulse Ox 01/01/18 02:03 98.0 F 95 20 166/96 H 99 01/01/18 01:51 95 22 H 99 12/31/17 22:11 99 20 98 12/31/17 20:00 96 12/31/17 19:58 98.1 F 104 H 18 166/88 H 96 12/31/17 18:10 91 18 99 Weight Admit Weight 68.22 kg Weight 68.492 kg I&O: 12/30/17 12/31/17 01/01/18 06:59 06:59 06:59 Intake Total 3055 2379 1840 Output Total 600 2375 30 Balance 2455 4 1810 Result Diagrams: 01/01/18 04:23 01/01/18 04:23 Phys Exam - Physical Examination Constitutional: NAD HEENT: moist MMs Neck: no JVD Upper airway stridor obscures auscultation Upper airway stridor obscures auscultation Gastrointestinal: soft, non-tender, no distention, positive bowel sounds Musculoskeletal: no edema, pulses present Neurological: moves all 4 limbs Psychiatric: A&O x 3 Skin: normal turgor Dx/Plan (1) Dyspnea Code(s): R06.00 - DYSPNEA, UNSPECIFIED Status: Acute (2) Lung cancer Code(s): C34.90 - MALIGNANT NEOPLASM OF UNSP PART OF UNSP BRONCHUS OR LUNG Status: Acute (3) HTN (hypertension) Code(s): I10 - ESSENTIAL (PRIMARY) HYPERTENSION Status: Acute (4) HLD (hyperlipidemia) Code(s): E78.5 - HYPERLIPIDEMIA, UNSPECIFIED Status: Acute (5) Hypothyroidism Code(s): E03.9 - HYPOTHYROIDISM, UNSPECIFIED Status: Acute (6) History of throat cancer Code(s): Z85.819 - PRSNL HX OF MALIG NEOPLM OF UNSP SITE LIP,ORAL CAV,& PHARYNX Status: Acute (7) Tongue cancer Status: Acute (8) History of tobacco abuse Code(s): Z87.891 - PERSONAL HISTORY OF NICOTINE DEPENDENCE Status: Acute - Plan Plan: This is a 72 yo male PMH of 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 COPD exacerbation vs. mass effect in throat, leading to acute respiratory failure -Pt. met SIRS criteria on admission due to heart rate, breathing, and WBC. CXR shows no signs of PNA, procalcitonin 31.79. Pt. was started on vanc and zosyn ( 12/28) in the ED and will be continued. He is also receiving PRN duonebs and PRN albuterol nebs. Pt. has been on steroids since admission (12/28). D-dimer was negative. CBC was 15.7 today although patient has been on PO steroids for dyspnea since 12/16. Dr. Chatman is not as convinced that this is infectious in nature and we have stopped abx at this time. Lung cancer -Diagnoses with PET scan 2 weeks ago. Pt. had a lymph node biopsy on 12/25 showing small cell bronchogenic carcinoma. Dr. Chatman is his director of strategic communications. Dr. Fay is the oncologist. Pt. is undergoing day two of chemotherapy. Hypothyroidism -2/2 radiation. Will continue home meds once reconciled. HTN -Continue pt's home amlodipine and losartan/HCTZ HLD -Start pt. on statin Hx of throat/tongue cancer -Pt. has been on pureed diet since surgery in 2002. Pt. had recent, 12/15, scope performed by Dr. Neo Plunkett showing no signs of cancer. Despite this he as had increased dysphagia to water only. Speech has been consulted. Pt. is on clear liquid diet. -[facility] and oncology have been consulted. Pt. received PEG tube yesterday. Consult dietetics. Pt. will be going home on tube feedings and will be evaluated by the infusion company today. Protein calorie malnutrition -Likely 2/2 to progressive dysphagia and previous oral surgery. Pt. had PEG tube placed yesterday to allow for nutrition and oral medications. Pt. will need nutritional supplementation through peg tube for greater than 90 days. He is currently receiving Jevity 1.5 via peg tube. We are trialling boluses today. Physical deconditioning -Pt. has had poor oral intake and decreased activity for an extended period of time. He will require a wheelchair in the outpt. setting for mobility. Pt. can not tolerate walking with walker. Hypokalemia -We are replacing PO potassium. His levels are 3.0 in this pt. Hypophosphatemia -Likely 2/2 poor nutrition. We are replacing phosphorous Hx of fall -No current risk of fall. Was 2/2 poor judgment Hx of tobacco abuse -30 pack year history, quit 10 years ago Code: full Prophylaxis: Pepcid, lovenox Family: at bedside, plan discussed with her. Disposition: Admit to oncology, DC in 3-4 days
[2018-01-01] MEDS: Levothyroxine Sodium 25 MCG TAB PER TUBE SCH (06:34)
[2018-01-01] MEDS: Levothyroxine Sodium 112 MCG TAB PER TUBE SCH (06:34)
[2018-01-01] MEDS: Mometasone/Formoterol 120 PUFF INHALER INH SCH ×2 (07:08→19:41)
--- NOTE | 2018-01-01 10:40 | PRG ---
DATE OF SERVICE: 01/01/2018 He said he was having difficulty breathing last night. He took an extra breathing treatment though h e clearly is better this morning without any coughing or wheezing. He wants a home nebulizer for which one is being prescribed. PHYSICAL EXAMINATION: VITAL SIGNS: Sats are 96 on room air, respiration 20, temperature is 97, blood pressure is 168/97. CHEST: Chest reveals decreased breath sounds, no wheezing. CARDIAC: Normal S1, S2. ABDOMEN: Soft, no masses. Lab is unremarkable. IMPRESSION: 1. Metastatic small cell. 2. Chronic obstructive pulmonary disease. 3. Left vocal cord paralysis. PLAN: Continue chemotherapy. Home post-chemo followed by Oncology, and Dr. Chatman on an outpatient ba sis.
[2018-01-01] MEDS: Hydrochlorothiazide 25 MG TAB PER TUBE SCH ×2 (10:47→20:44)
[2018-01-01] MEDS: Amlodipine 10 MG TAB PER TUBE SCH (10:48)
[2018-01-01] MEDS: guaiFENesin ER 600 MG TAB PO SCH ×2 (10:48→20:43)
[2018-01-01] MEDS: Losartan 25 MG TAB PER TUBE SCH (10:48)
[2018-01-01] MEDS: Famotidine/PF 20 mg/2ml Vial SLOW IVP SCH ×2 (10:49→20:53)
[2018-01-01] MEDS: Potassium Chloride 20 MEQ TAB PER TUBE SCH ×3 (10:49→17:25)
[2018-01-01] MEDS: Enoxaparin Sodium 40 MG/0.4 ML SYRINGE SC SCH (10:50)
[2018-01-01 11:28] VITALS: BMI 25.9
[2018-01-01] MEDS ORDERED: ETOPOSIDE IV SCH (12:00)
[2018-01-01] MEDS ORDERED: SODIUM CHLORIDE 0.9% IV SCH (12:00)
--- NOTE | 2018-01-01 13:05 | ADD-PRG ---
ADDENDUM DATE OF SERVICE: 01/01/2018 This is an addendum to the note of Dr. Ean Hernandez. MrBrittney Chowdhury drinker looks and feels much better. He has only minimal stridor. His feeding tube is in p lace and functioning properly. We will continue to follow with the Oncology Service.
[2018-01-01] MEDS: Ondansetron HCl/PF 4 MG/2 ML Vial IVP PRN ×2 (14:33→20:43)
[2018-01-01] MEDS: Sodium Chloride 0.65% Nasal 44 ML BOT EA NARE SCH ×2 (17:27→20:54)
[2018-01-01] MEDS: Fluticasone Propionate Nasal Spray 16 gm Bottle NASAL SCH (20:53)
[2018-01-02] MEDS: Acetaminophen 650 MG/20.3 ML UDCUP PER TUBE PRN ×2 (00:58→19:56)
[2018-01-02 05:20] LABS: #Eosinphils 0.1 thou/uL (0.0-0.7); #Lymphocytes 1.2 thou/uL (1.20-3.40); #Monocytes 0.3 thou/uL (0.11-0.59); #Neutrophils 7.9 thou/uL (1.40-6.50); %Basophils 0.1 % (0.0-1.0); %Eosinophils 0.6 % (0.0-10.0); %Lymphocytes 12.5 % (21.0-51.0); %Monocytes 3.1 % (0.0-10.0); %Neutrophils 83.6 % (42.0-75.0); Hemoglobin 13.8 g/dL (14.0-18.0); Mean Corpuscular HGB CONC 31.2 g/dL (32.0-36.0); Mean Corpuscular Hemoglobin 32.1 pg (27.0-31.0); Mean Platelet Volume 6.3 fL (7.4-10.4); Platelet Count 312 thou/uL (130-400); RBC Distribution Width 12.1 % (11.5-14.5); Red Blood Cell (RBC) Count 4.31 mill/uL (4.70-6.10); White Blood Cell (WBC) Count 9.5 thou/uL (4.8-10.8)
--- NOTE | 2018-01-02 05:35 | PDOC.FM ---
- Subjective Subjective: Pt reports feeling well this AM. Denies SOB and reports improved cough. Reports he is ready to go for port placement today for continued chemo therapy. ROS: Denies fevers/chill, no sob, reports cough, no cp no palpiatiations , no n/ v - Objective MAR Reviewed: Yes Vital Signs & Weight: Vital Signs (12 hours) Temp Pulse Resp BP Pulse Ox 01/02/18 05:25 97.9 F 98 20 176/102 H 95 01/02/18 03:49 93 L 01/02/18 00:25 98.1 F 99 18 165/99 H 95 01/01/18 23:43 93 L 01/01/18 20:10 98.2 F 93 18 156/95 H 94 L 01/01/18 20:00 94 L 01/01/18 19:43 95 01/01/18 19:42 95 01/01/18 19:41 95 01/01/18 17:43 100 157/94 H Weight Admit Weight 68.22 kg Weight 68.492 kg I&O: 12/31/17 01/01/18 01/02/18 06:59 06:59 06:59 Intake Total 2379 2740 2580 Output Total 2375 30 Balance 4 2710 2580 Result Diagrams: 01/02/18 04:48 01/02/18 04:48 Phys Exam - Physical Examination Constitutional: NAD HEENT: moist MMs, sclera anicteric Neck: full ROM Bilateral diffuse expiratory wheezing on expiration, no retractions Cardiovascular: RRR, no significant murmur Gastrointestinal: soft, non-tender Musculoskeletal: pulses present Neurological: normal sensation, moves all 4 limbs Psychiatric: normal affect Skin: no rash, normal turgor Dx/Plan (1) Dyspnea Code(s): R06.00 - DYSPNEA, UNSPECIFIED Status: Acute (2) HTN (hypertension) Code(s): I10 - ESSENTIAL (PRIMARY) HYPERTENSION Status: Acute (3) History of throat cancer Code(s): Z85.819 - PRSNL HX OF MALIG NEOPLM OF UNSP SITE LIP,ORAL CAV,& PHARYNX Status: Acute (4) History of tobacco abuse Code(s): Z87.891 - PERSONAL HISTORY OF NICOTINE DEPENDENCE Status: Acute (5) Hypothyroidism Code(s): E03.9 - HYPOTHYROIDISM, UNSPECIFIED Status: Acute (6) Lung cancer Code(s): C34.90 - MALIGNANT NEOPLASM OF UNSP PART OF UNSP BRONCHUS OR LUNG Status: Acute (7) Tongue cancer Status: Acute - Plan Plan: This is a 72 yo male PMH of 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 COPD exacerbation vs. mass effect in throat, leading to acute respiratory failure A -Respiratory status improved. Pt. met SIRS criteria on admission due to heart rate, breathing, and WBC. CXR shows no signs of PNA, procalcitonin 31.79. Pt. was started on vanc and zosyn (12/28-12/30). D-dimer was negative. CBC was 9.5 today although patient had been on PO steroids for dyspnea since 12/16-12/31. Dr. Chatman is not as convinced that this is infectious in nature and abx were dc'd on 12/30. P- continue PRN duonebs and PRN albuterol nebs. - continue to monitor respiratory status Lung cancer A-Diagnoses with PET scan 2 weeks ago. Pt. had a lymph node biopsy on 12/25 showing small cell bronchogenic carcinoma. Dr. Chatman is his operating room surgical technician. Dr. Fay is the oncologist. P- Pt. is undergoing day three of chemotherapy today -port placement today -possibly home today after port placement. Hx of throat/tongue cancer A- Pt. has been on pureed diet since surgery in 2002. Pt. had recent, 12/15, scope performed by Dr. Neo Plunkett showing no signs of cancer. Despite this he as had increased dysphagia to water only. Speech has been consulted. Pt. is on clear liquid diet. Pt. received PEG tube. Consulted dietetics. Pt. will be going home on tube feedings and was evaluated by the infusion [employer]. P- f/u on dietary and infusion company recs Protein calorie malnutrition A-Likely 2/2 to progressive dysphagia and previous oral surgery. Pt. had PEG tube placed yesterday to allow for nutrition and oral medications. Pt. will need nutritional supplementation through peg tube for greater than 90 days. P- He is currently receiving Jevity 1.5 via peg tube. We are trialling boluses Hypothyroidism -2/2 radiation. Will continue home meds once reconciled. HTN -Continue pt's home amlodipine and losartan/HCTZ Physical deconditioning -Pt. has had poor oral intake and decreased activity for an extended period of time. He will require a wheelchair in the outpt. setting for mobility. Pt. can not tolerate walking with walker. Hypokalemia -resolved Hypophosphatemia -Likely 2/2 poor nutrition. We are replacing phosphorous Hx of fall -No current risk of fall. Was 2/2 poor judgment Hx of tobacco abuse -30 pack year history, quit 10 years ago
[2018-01-02 05:37] LABS: Anion Gap 11 mmol/L (10-20); BUN (Urea Nitrogen) 13 mg/dL (8.4-25.7); Calc. Creatinine Clearance 101 mL/min (70-130); Calcium 9.5 mg/dL (7.8-10.44); Carbon Dioxide 35 mmol/L (23-31); Chloride 92 mmol/L (98-107); Estimated GFR-MDRD Greater than 90; Glucose 88 mg/dL (83-110); Potassium 4.3 mmol/L (3.5-5.1); Sodium 134 mmol/L (136-145)
[2018-01-02] MEDS: Mometasone/Formoterol 120 PUFF INHALER INH SCH ×2 (06:33→19:52)
[2018-01-02] MEDS: Levothyroxine Sodium 112 MCG TAB PER TUBE SCH (07:11)
[2018-01-02] MEDS: Levothyroxine Sodium 25 MCG TAB PER TUBE SCH (07:12)
[2018-01-02] MEDS: Labetalol HCl 100 MG/20 ML VIAL SLOW IVP PRN ×2 (07:30→12:49)
[2018-01-02] MEDS ORDERED: SODIUM CHLORIDE 0.9% IV SCH (12:00)
[2018-01-02] MEDS ORDERED: Pegfilgrastim Onpro 6 MG/0.6 ML SQ SCH (12:00)
[2018-01-02] MEDS ORDERED: ETOPOSIDE IV SCH (12:00)
[2018-01-02] MEDS ORDERED: Ketamine 50 MG/ML VIAL ONE (13:29)
[2018-01-02] MEDS ORDERED: Famotidine/PF 20 mg/2ml Vial ONE (13:29)
[2018-01-02] MEDS ORDERED: Midazolam HCl 2 mg/2 ml Vial ONE (13:29)
[2018-01-02] MEDS ORDERED: Sodium Chloride 0.9% 20 ML ONE (13:40)
[2018-01-02] MEDS ORDERED: Bupivacaine/Epinephrine 0.25% 30 ML VIAL ONE (13:40)
[2018-01-02] MEDS: Enoxaparin Sodium 40 MG/0.4 ML SYRINGE SC SCH (14:02)
[2018-01-02] MEDS: Amlodipine 10 MG TAB PER TUBE SCH (14:02)
[2018-01-02] MEDS: Famotidine/PF 20 mg/2ml Vial SLOW IVP SCH ×2 (14:02→20:06)
[2018-01-02] MEDS: Potassium Chloride 20 MEQ TAB PER TUBE SCH (14:02)
[2018-01-02] MEDS: Losartan 25 MG TAB PER TUBE SCH (14:03)
[2018-01-02] MEDS: guaiFENesin ER 600 MG TAB PO SCH ×2 (14:03→20:04)
[2018-01-02] MEDS: Hydrochlorothiazide 25 MG TAB PER TUBE SCH ×2 (14:03→20:04)
[2018-01-02] MEDS: Sodium Chloride 0.65% Nasal 44 ML BOT EA NARE SCH ×3 (14:03→20:05)
--- NOTE | 2018-01-02 14:10 | PRG ---
DATE OF SERVICE: 01/02/2018 SUBJECTIVE: The patient is awaiting a port placement today. PHYSICAL EXAMINATION: VITAL SIGNS: Temperature 97.6, pulse 85, respirations 16, O2 sat 95% on room air, blood pressure 177 /101. HEENT: Unremarkable. NECK: No JVD. CHEST: Clear. CARDIAC: S1, S2 regular. ABDOMEN: Soft. EXTREMITIES: Severe muscle wasting. LABORATORY DATA: White blood cell count 9.5, hematocrit 44.3, platelet count 312. Sodium 134, potas sium 4.3, chloride 92, CO2 of 35, BUN 13, creatinine 0.6, glucose 88. ASSESSMENT: 1. Small cell lung cancer. 2. Chronic obstructive pulmonary. 3. Left vocal cord paralysis. PLAN: 1. Port to be placed today. 2. I wrote a prescription for DuoNeb and home nebulizer.
[2018-01-02] MEDS ORDERED: Promethazine HCl 25 MG/ML VIAL SLOW IVP PRN (14:26)
[2018-01-02] MEDS ORDERED: Ondansetron HCl/PF 4 MG/2 ML Vial IVP PRN (14:26)
[2018-01-02] MEDS ORDERED: Heparin 10,000 UNITS/1 ML VIAL ONE (14:40)
--- NOTE | 2018-01-02 15:20 | RAD ---
CHEST 1 VIEW: HISTORY: MediPort placement. COMPARISON: 12/28/2017. FINDINGS: Cardiac silhouette is magnified by projection. Pulmonary vasculature is unremarkable. Mediastinum i s midline. The tip of a left subclavian MediPort overlies the superior vena cava. No evidence of pn eumothorax. IMPRESSION: New left subclavian MediPort is in good radiograph position. POS: [facility]
--- NOTE | 2018-01-02 15:37 | EKG ---
Test Reason : SOB Blood Pressure : / mmHG Vent. Rate : 105 BPM Atrial Rate : 105 BPM P-R Int : 128 ms QRS Dur : 088 ms QT Int : 334 ms P-R-T Axes : 060 002 071 degrees QTc Int : 441 ms Sinus tachycardia Possible Left atrial enlargement Nonspecific ST abnormality Abnormal ECG Confirmed by MARKO SCHAFFER ([id number]), editorial assistant ANABELLE JORGENSEN ([id number] on 01/02/2018 3:37:34 PM Referred By: Confirmed By:MARKO SCHAFFER
--- NOTE | 2018-01-02 19:43 | OP ---
DATE OF OPERATION: 01/02/2018 PREOPERATIVE DIAGNOSES: 1. Throat cancer, status post radiation. 2. Need for access for chemotherapy. POSTOPERATIVE DIAGNOSES: 1. Throat cancer, status post radiation. 2. Need for access for chemotherapy. SURGERY PERFORMED: Left subclavian Mediport placement under fluoroscopy. SURGEON: Enrique Moody D.O. ANESTHESIA: Monitored anesthesia care. INDICATIONS FOR OPERATION: A 72-year-old man with history of throat cancer, status post surgery and radiation therapy. The patient requires chemotherapy and I was asked to place a Mediport for that pu rpose. DESCRIPTION OF OPERATION: Informed consent obtained from the patient who was brought to the operatin g room and placed in supine position. Following monitored anesthesia care, the chest wall is sterile ly prepped and draped in the usual fashion. The skin below the left clavicle was anesthetized with 0 .25% Marcaine with epinephrine. Left subclavian vein was cannulated with an 18-gauge introducer need le returning dark venous blood. A guidewire was passed through the needle and advanced into the left subclavian vein without resistance. Needle was withdrawn over the guidewire. Proper placement of t he guidewire was confirmed by fluoroscopy. Next, a stab incision was made adjacent to the guidewire using an 11 scalpel. A dilator was passed over the guidewire dilating subcutaneous tissues. A dilat or and an introducer peel-away sheath was introduced as a unit over the guidewire and advanced into t he left subclavian vein without resistance. The guidewire and the dilator were removed as a unit. T he Mediport catheter was then advanced through the pull-away sheath and placed in the left subclavian vein without resistance. The introducer sheath was peeled away. The catheter was then fashioned to length under fluoroscopy. Vertical incision was made below the insertion site using a 15 scalpel. Incision was carried through subcutaneous tissues maintaining hemostasis using cautery. I raised sub cutaneous pocket using suture scissors. The catheter was then assembled with the Mediport well and s ecured in the subcutaneous pocket. The was secured to the anterior chest wall using 3-0 Prolen e suture. Subcutaneous tissues were approximated over the port using interrupted sutures of 3-0 Vicr yl. The skin incision was then closed using a running stitch of 4-0 Monocryl suture in subcuticular fashion. Dermabond was applied over the incision. Prior to closure of the subcutaneous pocket, dark venous blood was aspirated from the well, which was flushed first with saline and then with heparin. The patient tolerated the operation without any apparent complication. Portable chest x-ray was ob tained confirming proper placement of the port and no pneumothorax present.
[2018-01-02] MEDS: Fluticasone Propionate Nasal Spray 16 gm Bottle NASAL SCH (20:58)
[2018-01-03] MEDS: Sodium Chloride 0.65% Nasal 44 ML BOT EA NARE SCH (04:29)
[2018-01-03] MEDS: Levothyroxine Sodium 25 MCG TAB PER TUBE SCH (05:26)
[2018-01-03] MEDS: Levothyroxine Sodium 112 MCG TAB PER TUBE SCH (05:26)
[2018-01-03] MEDS: Acetaminophen 650 MG/20.3 ML UDCUP PER TUBE PRN ×2 (05:29→10:59)
--- NOTE | 2018-01-03 05:35 | PDOC.FM ---
- Subjective Subjective: Pt reports feeling well this AM. He says he tolerated the port placement well and feels well enough to go home. no complaints at this time. - Objective MAR Reviewed: Yes Vital Signs & Weight: Vital Signs (12 hours) Temp Pulse Resp BP Pulse Ox 01/03/18 04:00 97.7 F 91 16 154/82 H 96 01/02/18 23:56 98.1 F 90 20 138/93 H 96 01/02/18 23:28 96 01/02/18 20:00 87 20 120/80 93 L 01/02/18 19:53 93 L 01/02/18 19:52 93 L 01/02/18 19:51 93 L 01/02/18 19:00 98.2 F 92 18 123/79 96 Weight Admit Weight 68.22 kg Weight 68.492 kg I&O: 01/01/18 01/02/18 01/03/18 06:59 06:59 06:59 Intake Total 2740 2650 1374 Output Total 30 Balance 2710 2650 1374 Result Diagrams: 01/03/18 06:15 01/03/18 06:15 Phys Exam - Physical Examination Constitutional: NAD HEENT: moist MMs, sclera anicteric Neck: no nodes, no JVD Respiratory: no wheezing, clear to auscultation bilateral Cardiovascular: RRR, no significant murmur Gastrointestinal: soft, non-tender Musculoskeletal: no edema, pulses present Neurological: non-focal, normal sensation Psychiatric: normal affect Skin: no rash, normal turgor Dx/Plan (1) Dyspnea Code(s): R06.00 - DYSPNEA, UNSPECIFIED Status: Acute (2) HTN (hypertension) Code(s): I10 - ESSENTIAL (PRIMARY) HYPERTENSION Status: Acute (3) History of throat cancer Code(s): Z85.819 - PRSNL HX OF MALIG NEOPLM OF UNSP SITE LIP,ORAL CAV,& PHARYNX Status: Acute (4) History of tobacco abuse Code(s): Z87.891 - PERSONAL HISTORY OF NICOTINE DEPENDENCE Status: Acute (5) Hypothyroidism Code(s): E03.9 - HYPOTHYROIDISM, UNSPECIFIED Status: Acute (6) Lung cancer Code(s): C34.90 - MALIGNANT NEOPLASM OF UNSP PART OF UNSP BRONCHUS OR LUNG Status: Acute (7) Tongue cancer Status: Acute - Plan Plan: Plan: This is a 72 yo male PMH of 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 COPD exacerbation vs. mass effect in throat, leading to acute respiratory failure A -Respiratory status improved. Pt. met SIRS criteria on admission due to heart rate, breathing, and WBC. CXR shows no signs of PNA, procalcitonin 31.79. Pt. was started on vanc and zosyn (12/28-12/30). D-dimer was negative. CBC was 9.5 today although patient had been on PO steroids for dyspnea since 12/16-12/31. Dr. Chatman is not as convinced that this is infectious in nature and abx were dc'd on 12/30. P- continue PRN duonebs and PRN albuterol nebs. - continue to monitor respiratory status - Dr. Leary has written pt home nebulizer and duonebs - likely home today Lung cancer A-Diagnoses with PET scan 2 weeks ago. Pt. had a lymph node biopsy on 12/25 showing small cell bronchogenic carcinoma. Dr. Chatman is his deputy county counsel. Dr. Fay is the oncologist. P- Pt. had three days chemotherapy (12/31-) -port placement yesterday - likely home today Hx of throat/tongue cancer A- Pt. has been on pureed diet since surgery in 2002. Pt. had recent, 12/15, scope performed by Dr. Neo Plunkett showing no signs of cancer. Despite this he as had increased dysphagia to water only. Speech has been consulted. Pt. is on clear liquid diet. Pt. received PEG tube. Consulted dietetics. Pt. will be going home on tube feedings and was evaluated by the [employer]. P- Pt educated and comfortable using tube feeds at home Protein calorie malnutrition A-Likely 2/2 to progressive dysphagia and previous oral surgery. Pt. had PEG tube placed yesterday to allow for nutrition and oral medications. Pt. will need nutritional supplementation through peg tube for greater than 90 days. P- He is currently receiving Jevity 1.5 via peg tube. Hypothyroidism -2/2 radiation. Will continue home meds once reconciled. HTN -Continue pt's home amlodipine and losartan/HCTZ Physical deconditioning -Pt. has had poor oral intake and decreased activity for an extended period of time. He will require a wheelchair in the outpt. setting for mobility. Pt. can not tolerate walking with walker. Hypokalemia -resolved Hypophosphatemia -resolved Hx of fall -No current risk of fall. Was 2/2 poor judgment Hx of tobacco abuse -30 pack year history, quit 10 years ago
[2018-01-03] MEDS: Mometasone/Formoterol 120 PUFF INHALER INH SCH (06:03)
[2018-01-03 06:25] LABS: #Eosinphils 0.1 thou/uL (0.0-0.7); #Neutrophils 9.5 thou/uL (1.40-6.50); %Basophils 0.1 % (0.0-1.0); %Eosinophils 1.1 % (0.0-10.0); %Lymphocytes 9.6 % (21.0-51.0); %Monocytes 0.3 % (0.0-10.0); %Neutrophils 88.9 % (42.0-75.0); Hemoglobin 13.2 g/dL (14.0-18.0); Mean Corpuscular Hemoglobin 32.7 pg (27.0-31.0); Mean Platelet Volume 6.1 fL (7.4-10.4); Platelet Count 250 thou/uL (130-400); RBC Distribution Width 12.1 % (11.5-14.5); Red Blood Cell (RBC) Count 4.03 mill/uL (4.70-6.10); White Blood Cell (WBC) Count 10.7 thou/uL (4.8-10.8)
[2018-01-03 06:38] LABS: Anion Gap 14 mmol/L (10-20); BUN (Urea Nitrogen) 22 mg/dL (8.4-25.7); Calc. Creatinine Clearance 95 mL/min (70-130); Calcium 8.9 mg/dL (7.8-10.44); Carbon Dioxide 32 mmol/L (23-31); Chloride 93 mmol/L (98-107); Estimated GFR-MDRD Greater than 90; Glucose 116 mg/dL (83-110); Potassium 3.7 mmol/L (3.5-5.1); Sodium 135 mmol/L (136-145)
[2018-01-03] MEDS: Enoxaparin Sodium 40 MG/0.4 ML SYRINGE SC SCH (10:07)
[2018-01-03] MEDS: Famotidine/PF 20 mg/2ml Vial SLOW IVP SCH (10:07)
[2018-01-03] MEDS: Amlodipine 10 MG TAB PER TUBE SCH (10:08)
[2018-01-03] MEDS: guaiFENesin ER 600 MG TAB PO SCH (10:09)
[2018-01-03] MEDS: Hydrochlorothiazide 25 MG TAB PER TUBE SCH (10:09)
[2018-01-03] MEDS: Losartan 25 MG TAB PER TUBE SCH (10:09)
[2018-01-03 10:11] VITALS: BP 109/72
[2018-01-03 10:56] VITALS: TEMP 97.8
[2018-01-03] MEDS ORDERED: Lidocaine 1% PF 5 ML VIAL ONE (13:26)
[2018-01-03] MEDS ORDERED: Ondansetron HCl/PF 4 MG/2 ML Vial ONE (13:26)
[2018-01-03] MEDS ORDERED: PROPOFOL 200 MG/20 ML VIAL ONE (13:26)
--- NOTE | 2018-01-04 14:49 | ADD-PRG ---
ADDENDUM Please see the note from Dr. Néstor Rivera for which I agree. The patient was seen and evaluated, e xamined and discussed with the residents by bedside. This gentleman is doing better. He had three rounds of chemo, tolerating food, doing okay. Has some stridor from vocal cord paralysis that is chronic and has home nebulizer and oxygen set up. Otherwi se, we will follow up with Oncology and his primary care physician this week.
--- NOTE | 2018-01-04 14:49 | ADD-PRG ---
DATE OF SERVICE: 01/03/2018 Please see the note from Dr. Néstor Rivera, for which I agree. The patient was seen, evaluated, exa mined, and discussed with the residents by bedside. This is a 72-year-old, who finished with his first round of chemotherapy for lung cancer, had a port placed yesterday and is ready to go home. He has some stridor from vocal cord paralysis and has home nebulizers, oxygen, and neb solutions. Follow up with Oncology. Otherwise, exam was unchanged. Ch est was clear stridor. Otherwise, ready to go and will follow up with his oncologist and pulmo nologist.
--- NOTE | 2018-01-04 14:50 | ADD-PRG ---
ADDENDUM Please see the note from Dr. Rivera for which I agree. The patient was seen and evaluated, examined and discussed with the residents by bedside. SUBJECTIVE: This is an unfortunate 72-year-old gentleman with small cell bronchogenic carcinoma and has a history of throat cancer. White count was initially elevated, thought he was infected, but det ermined that he is probably not. He is on day #3 of chemo and was about to get chemo access pl aced and may be ready to go home today if this happens today, but otherwise is stable. He has a little bit of stridor, but does not appear to be in any kind of major respiratory distress. PHYSICAL EXAMINATION: GENERAL: Alert and oriented x3, appropriate. 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 Spe nt a little time in educating him, little bit of stridorous breathing. .
--- NOTE | 2018-01-05 00:27 | DIS-2 ---
DATE OF ADMISSION: 12/28/2017 DATE OF DISCHARGE: 01/03/2018 RESIDENT: Néstor Rivera MD ADMITTING ATTENDING: Robert Chavez MD DISCHARGE ATTENDING: Abdiaziz Marshall MD CONSULTATIONS: 1. Dr. Chatman, Pulmonology. 2. Dr. Fay, Oncology. 3. Speech Therapy. PROCEDURES: 1. On 12/28/2017, chest x-ray: Impression: Hyperinflation, chronic change of lung parenchyma, and left upper lobe nodule. 2. On 12/28/2017, chest thorax CTA: Impression: No definite central pulmonary embolus demonstrated within limitations of exam, lobar and segmental pulmonary branches are not well seen due to motion a nd artifact. Findings suspicious for aspiration pneumonitis of both lower lobes and right middle lob e. Scattered pulmonary nodules within both lungs suspicious for metastatic disease. Nodular opacity within the left suprahilar region may reflect an enlarged lymph node versus suprahilar mass, large l ymph node within the AP window of the mediastinum suspicious for malignant lymphadenopathy, enlarged lymph nodes, left axillary region suspicious for metastatic disease, left adrenal gland mass suspicio us for metastatic disease. 3. Brain MRI on 12/30/2017: Impression: Limited evaluation due to motion and the patient's inabili ty to keep complete examination based on images provided. There is no evidence of brain parenchymal metastases, T2 and flair white matter hyperintensities are most compatible with chronic small vessel ischemic changes. 4. On 01/02/2018, chest x-ray: Impression: New left subclavian MediPort in good radiograph positio n. 5. On 01/02/2018, left subclavian MediPort placement under fluoroscopy. PRIMARY DIAGNOSES: Acute respiratory failure secondary to chronic obstructive pulmonary disease exac erbation and mass effect in throat. SECONDARY DIAGNOSES: Lung cancer, tongue and throat cancer, hypothyroidism, protein-calorie malnutri tion, hypertension, hypokalemia, hypophosphatemia. DISCHARGE MEDICATIONS: Losartan/hydrochlorothiazide 100/12.5 mg tab 1 tablet p.o. daily, levothyroxi ne 137 mcg p.o. daily, amlodipine 10 mg p.o. daily, acetaminophen 650 mg q.4 hours p.r.n., ondansetro n 4 mg q.6 hours p.r.n., sertraline 50 mg p.o. daily. DISCONTINUED MEDICATIONS: None. HISTORY OF PRESENT ILLNESS AND HOSPITAL COURSE: This is a 72-year-old male with past medical history of hypothyroidism and esophageal cancer diagnosed and treated in 2002. Patient presents for history of worsening shortness of breath. The patient was diagnosed with lung cancer 2 weeks before present ation from a PET scan and reports that he has been having increased dyspnea over the last 2 weeks wit h productive cough and thick-yellow sputum. Patient was admitted with acute respiratory failure seco ndary to mass effect of lung versus COPD exacerbation versus pneumonia and initially started on vanco mycin and Zosyn, which continued for 1-3 days. Pulmonology and Oncology were consulted and over the course of days based on the patient's clinical picture and imaging, it was deemed by Pulmonology. Th e patient was likely not having respiratory failure secondary to infectious causes and likely due to the mass effect versus COPD exacerbation. The patient had been treated with steroids, which were dis continued on 12/31/2017. Patient's respiratory status improved over hospitalization with p.r.n. DuoN ebs and albuterol nebulizations. During the patient's hospital stay, he also received a port placeme nt for chemotherapy after receiving 3 rounds of chemotherapy as the patient's respiratory status cont inued to improve. He was deemed safe for discharge to home with close follow up with Oncology and wi th new prescription of DuoNebs. Hospital stay was further complicated by hypokalemia and hypophospha temia, which were resolved as they were replaced through the patient's G-tube which had already been placed prior to admission. DISPOSITION: Stable. DISCHARGE INSTRUCTIONS: 1. Location: Home. 2. Diet: Tube-feeding diet. 3. Activity: As tolerated. 4. Followup: Follow up with Dr. Amanda Alexander in [address] Micheal Fay on 01/20/2018 at 9: 00 a.m.
== END 2018-01-03 15:52 | disposition home or self-care (01) | DRG 189 ==
LOC: ERS 09:54 → ONC 12:36
PROVIDERS: ADMIT Family Medicine; ATTEND Family Medicine
PROC: 3E03305 Introduction of Other Antineoplastic into Peripheral Vein, Percutaneous Approach (ICD-10-PCS; 2017-12-28)
PROC: 0DH63UZ Insertion of Feeding Device into Stomach, Percutaneous Approach (ICD-10-PCS; 2017-12-29)
PROC: 05H633Z Insertion of Infusion Device into Left Subclavian Vein, Percutaneous Approach (ICD-10-PCS; principal; 2018-01-02)
PROC: B517ZZA Fluoroscopy of Left Subclavian Vein, Guidance (ICD-10-PCS; 2018-01-02)
DX: J96.01 Acute respiratory failure with hypoxia (principal); C34.90 Malignant neoplasm of unspecified part of unspecified bronchus or lung; J44.1 Chronic obstructive pulmonary disease with (acute) exacerbation; R64 Cachexia; Z68.1 Body mass index [BMI] 19.9 or less, adult; C79.89 Secondary malignant neoplasm of other specified sites; C79.51 Secondary malignant neoplasm of bone; C79.70 Secondary malignant neoplasm of unspecified adrenal gland; C77.9 Secondary and unspecified malignant neoplasm of lymph node, unspecified; E44.0 Moderate protein-calorie malnutrition; R65.10 Systemic inflammatory response syndrome (SIRS) of non-infectious origin without acute organ dysfunction; E03.9 Hypothyroidism, unspecified; Z92.3 Personal history of irradiation; E78.5 Hyperlipidemia, unspecified; I10 Essential (primary) hypertension; R13.12 Dysphagia, oropharyngeal phase; J38.01 Paralysis of vocal cords and larynx, unilateral; R59.9 Enlarged lymph nodes, unspecified; E87.6 Hypokalemia; E83.39 Other disorders of phosphorus metabolism; Z85.818 Personal history of malignant neoplasm of other sites of lip, oral cavity, and pharynx; Z87.891 Personal history of nicotine dependence; F41.9 Anxiety disorder, unspecified; Z91.81 History of falling
CPT/HCPCS: 36415; 70553; 71045; 71275; 80048; 80053; 80202; 81003; 83605; 83735; 83880; 84100; 84145; 85025; 85379; 85610; 85730; 87040; 87086; 93005; 94640; 94664; 94760; 96361; 96365; 96377; A4216; C1788; G8996-GN-CN; G8997-GN-CN; J1200; J1642; J1644; J1650; J2001; J2250; J2405; J2469; J2505; J2543; J2704; J2920; J3370; J3480; J7050; J7620; J9045; S0028